=== PATIENT | male | born 1985 | race Caucasian/White ===

== ENCOUNTER 2018-07-25 04:30 | Emergency (ER) | payer MEDICAID ==
[~2018-07-25] VITALS: Ht 188 cm; Wt 109.0 kg
[~2018-07-25 04:30] MED LIST: ALBU8.5H8 IH; ALBU8HFA PO; CLIN300C85 PO
[2018-07-25] MEDS ORDERED: levoFLOXACIN-Levaquin 750MG/D5 150 ML IV ONE (05:05)
[2018-07-25] MEDS ORDERED: normal saline 1000ML IV soln IV ONE (05:05)
[2018-07-25 05:26] VITALS: BP 136/106
[2018-07-25 05:35] LABS: BASOPHILS % (AUTO) 0.4 % (0-1); EOSINOPHILS % (AUTO) 0.3 % (0-6); HEMATOCRIT 42.3 % (42.0-52.0); HEMOGLOBIN 13.9 g/dl (14.0-17.9); LYMPHOCYTES # (AUTO) 2.3 X10'3 (1.1-4.8); LYMPHOCYTES % (AUTO) 18.2 % (21-51); MEAN CORPUSCULAR HEMOGLOBIN 28.2 PG (27.0-31.0); MEAN CORPUSCULAR HGB CONC 32.9 % (33.0-36.5); MEAN CORPUSCULAR VOLUME 85.8 FL (78-98); MEAN PLATELET VOLUME 7.9 FL (7.4-10.4); MONOCYTES # (AUTO) 0.9 X10'3 (0-0.9); MONOCYTES % (AUTO) 7.3 % (2-12); NEUTROPHILS # (AUTO) 9.5 X10'3 (1.8-7.7); NEUTROPHILS % (AUTO) 73.8 % (42-75); PLATELET COUNT 422 X10'3 (140-440); RED BLOOD COUNT 4.94 X10'6 (4.70-6.10); WHITE BLOOD COUNT 12.9 X10'3 (4.5-11.0)
[2018-07-25 05:44] LABS: INR 1.1 INR; PARTIAL THROMBOPLASTIN TIME 29 SECONDS (22-32); PROTHROMBIN TIME 11.4 SECONDS (9.0-12.0)
[2018-07-25 05:45] LABS: ALANINE AMINOTRANSFERASE 45 U/L (12-78); ALBUMIN 3.1 G/DL (3.4-5.0); ALBUMIN/GLOBULIN RATIO 0.9 (1.1-1.5); ALKALINE PHOSPHATASE 72 IU/L (46-116); ANION GAP 12 (8-16); ASPARTATE AMINO TRANSFERASE 16 U/L (10-37); BILIRUBIN,TOTAL 0.7 MG/DL (0.1-1.0); BLOOD UREA NITROGEN 13 MG/DL (7-18); BUN/CREATININE RATIO 11.8 (5.4-32.0); CALCIUM 8.5 MG/DL (8.5-10.1); CHLORIDE 102 MMOL/L (99-107); GLUCOSE 103 MG/DL (70-104); MAGNESIUM 1.8 MG/DL (1.5-2.4); POTASSIUM 3.8 MMOL/L (3.5-5.1); SODIUM 137 MMOL/L (135-145); TOTAL CARBON DIOXIDE 22.9 MMOL/L (24-32); TOTAL PROTEIN 6.7 G/DL (6.4-8.2); eGFR 77 ML/MIN
[2018-07-25] MEDS ORDERED: iohexol 350MG/ML 100ml bottle IV ONE (06:02)
[2018-07-25] MEDS ORDERED: LEVO750T21 PO (08:21)
== END 2018-07-25 08:35 | disposition home or self-care (01) ==
LOC: ER 04:31
DX: J18.9 Pneumonia, unspecified organism (principal); J84.89 Other specified interstitial pulmonary diseases; J45.909 Unspecified asthma, uncomplicated; Z86.14 Personal history of Methicillin resistant Staphylococcus aureus infection; Z79.2 Long term (current) use of antibiotics; Z79.899 Other long term (current) drug therapy
CPT/HCPCS: 36415; 71046; 71275; 80053; 83605; 83735; 84145; 85025; 85610; 85730; 87040; 96365; 96366; 99284; J1956; J7030; Q9967

== ENCOUNTER 2018-08-04 14:51 | Emergency (ER) | payer MEDICAID ==
[~2018-08-04] VITALS: Ht 188 cm; Wt 104.5 kg
[~2018-08-04 14:51] MED LIST changes: +LEVO750T21 PO
[2018-08-04 15:25] VITALS: BP 134/93
[2018-08-04 16:24] LABS: BASOPHILS % (AUTO) 0.5 % (0-1); EOSINOPHILS # (AUTO) 0.1 X10'3 (0-0.9); EOSINOPHILS % (AUTO) 0.7 % (0-6); HEMATOCRIT 40.7 % (42.0-52.0); HEMOGLOBIN 13.4 g/dl (14.0-17.9); LYMPHOCYTES # (AUTO) 2.7 X10'3 (1.1-4.8); LYMPHOCYTES % (AUTO) 30.7 % (21-51); MEAN CORPUSCULAR HEMOGLOBIN 28.4 PG (27.0-31.0); MEAN CORPUSCULAR VOLUME 85.9 FL (78-98); MONOCYTES # (AUTO) 0.5 X10'3 (0-0.9); NEUTROPHILS # (AUTO) 5.4 X10'3 (1.8-7.7); NEUTROPHILS % (AUTO) 62.1 % (42-75); PLATELET COUNT 369 X10'3 (140-440); RED BLOOD COUNT 4.74 X10'6 (4.70-6.10); RED CELL DISTRIBUTION WIDTH 12.4 % (11.5-14.5); WHITE BLOOD COUNT 8.8 X10'3 (4.5-11.0)
[2018-08-04 16:40] LABS: ALANINE AMINOTRANSFERASE 34 U/L (12-78); ALBUMIN/GLOBULIN RATIO 0.8 (1.1-1.5); ALKALINE PHOSPHATASE 72 IU/L (46-116); ANION GAP 9 (8-16); ASPARTATE AMINO TRANSFERASE 15 U/L (10-37); BILIRUBIN,TOTAL 0.8 MG/DL (0.1-1.0); BLOOD UREA NITROGEN 15 MG/DL (7-18); BUN/CREATININE RATIO 12.8 (5.4-32.0); CALCIUM 8.8 MG/DL (8.5-10.1); CHLORIDE 104 MMOL/L (99-107); CREATININE 1.17 MG/DL (0.60-1.10); GLUCOSE 104 MG/DL (70-104); POTASSIUM 4.2 MMOL/L (3.5-5.1); SODIUM 138 MMOL/L (135-145); TOTAL CARBON DIOXIDE 25.3 MMOL/L (24-32); TOTAL PROTEIN 6.7 G/DL (6.4-8.2); eGFR 71 ML/MIN
[2018-08-04] MEDS ORDERED: FURO-150 PO (17:02)
== END 2018-08-04 17:20 | disposition home or self-care (01) ==
LOC: ER 14:51
DX: I51.7 Cardiomegaly (principal); J45.909 Unspecified asthma, uncomplicated; F12.90 Cannabis use, unspecified, uncomplicated; F15.90 Other stimulant use, unspecified, uncomplicated; Z86.14 Personal history of Methicillin resistant Staphylococcus aureus infection; Z79.899 Other long term (current) drug therapy
CPT/HCPCS: 36415; 71045; 80053; 83880; 85025; 87502; 87503; 93005; 99284

== ENCOUNTER → 2018-08-13 | Emergency (ER) | payer MEDICAID ==
[~2018-08-13] VITALS: Ht 188 cm; Wt 105.0 kg
[~2018-08-13] MED LIST changes: +ALBU8.5H8 INH; +CARV-49 PO; +CLON-529 PO; +CLON0.1T PO; +FURO-149 PO; +FURO-150 PO; +FURO40TA4 PO; -LEVO750T21 PO; +LORazepam 0.5 MG tablet PO ONE; +LORazepam 1 MG tablet PO ONE; +POTA-82 PO; +POTA20TA19 PO; +carVEDilol 12.5mg tablet PO ONE; +chlordiazePOXIDE 25mg capsule PO ONE; +cloNIDine 0.1 mg tablet PO ONE; +furosemide 20MG tablet PO ONE
[2018-08-13 06:03] LABS: BASOPHILS % (AUTO) 0.4 % (0-1); EOSINOPHILS # (AUTO) 0.2 X10'3 (0-0.9); EOSINOPHILS % (AUTO) 1.6 % (0-6); HEMATOCRIT 38.9 % (42.0-52.0); HEMOGLOBIN 13.1 g/dl (14.0-17.9); LYMPHOCYTES # (AUTO) 1.7 X10'3 (1.1-4.8); LYMPHOCYTES % (AUTO) 17.3 % (21-51); MEAN CORPUSCULAR HEMOGLOBIN 28.4 PG (27.0-31.0); MEAN CORPUSCULAR HGB CONC 33.7 % (33.0-36.5); MEAN CORPUSCULAR VOLUME 84.5 FL (78-98); MEAN PLATELET VOLUME 7.9 FL (7.4-10.4); MONOCYTES # (AUTO) 0.5 X10'3 (0-0.9); MONOCYTES % (AUTO) 5.6 % (2-12); NEUTROPHILS # (AUTO) 7.3 X10'3 (1.8-7.7); NEUTROPHILS % (AUTO) 75.1 % (42-75); PLATELET COUNT 392 X10'3 (140-440); WHITE BLOOD COUNT 9.7 X10'3 (4.5-11.0)
[2018-08-13 06:21] LABS: D-DIMER 1.52 MG/L FEU (0-0.50)
[2018-08-13 06:32] LABS: ALANINE AMINOTRANSFERASE 31 U/L (12-78); ALBUMIN 2.9 G/DL (3.4-5.0); ALBUMIN/GLOBULIN RATIO 0.8 (1.1-1.5); ALKALINE PHOSPHATASE 76 IU/L (46-116); ANION GAP 13 (8-16); ASPARTATE AMINO TRANSFERASE 18 U/L (10-37); BILIRUBIN,TOTAL 0.4 MG/DL (0.1-1.0); BLOOD UREA NITROGEN 16 MG/DL (7-18); BUN/CREATININE RATIO 14.4 (5.4-32.0); CALCIUM 8.7 MG/DL (8.5-10.1); CHLORIDE 106 MMOL/L (99-107); CREATININE 1.11 MG/DL (0.60-1.10); GLUCOSE 107 MG/DL (70-104); POTASSIUM 4.6 MMOL/L (3.5-5.1); SODIUM 139 MMOL/L (135-145); TOTAL CARBON DIOXIDE 20.5 MMOL/L (24-32); TOTAL PROTEIN 6.6 G/DL (6.4-8.2); eGFR 76 ML/MIN
[2018-08-13 06:34] VITALS: BP 139/62
[2018-08-13 06:40] LABS: MAGNESIUM 1.9 MG/DL (1.5-2.4)
== END | disposition home or self-care (01) ==
LOC: ER 05:17
DX: I42.0 Dilated cardiomyopathy (principal); F15.188 Other stimulant abuse with other stimulant-induced disorder; F41.9 Anxiety disorder, unspecified; I11.0 Hypertensive heart disease with heart failure; I50.9 Heart failure, unspecified; J45.909 Unspecified asthma, uncomplicated; F12.10 Cannabis abuse, uncomplicated
CPT/HCPCS: 36415; 71045; 80053; 83735; 83880; 84145; 84484; 85025; 85379; 93005; 99284

== ENCOUNTER 2018-08-14 14:25 | Inpatient (IN) | payer MEDICAID | END 2018-08-20 16:30 | disposition home health service (06) | LOC: ER 14:25 → ORTHO 4S 08-16 17:29 → ED HOLD 17:43 → ICU 2S 22:00 ==

== ENCOUNTER 2019-07-09 23:00 | Emergency (ER) | payer MEDICAID ==
[~2019-07-09] VITALS: Ht 185.4 cm; Wt 113.6 kg
[~2019-07-09 23:00] MED LIST changes: -ALBU8.5H8 IH; -ALBU8HFA PO; +APIX5TAB3 PO; +ASPI-1265 PO; +ATOR20TA66 PO; -CARV-49 PO; -CLIN300C85 PO; -CLON-529 PO; -CLON0.1T PO; +COR3.125T PO; -FURO-150 PO; -FURO40TA4 PO; +LISI2.5T2 PO; -LORazepam 0.5 MG tablet PO ONE; -LORazepam 1 MG tablet PO ONE; -POTA-82 PO; -POTA20TA19 PO; +SPIR25TA PO; -carVEDilol 12.5mg tablet PO ONE; -chlordiazePOXIDE 25mg capsule PO ONE; -cloNIDine 0.1 mg tablet PO ONE; -furosemide 20MG tablet PO ONE
[2019-07-10 00:15] LABS: PARTIAL THROMBOPLASTIN TIME 30 SECONDS (22-32)
[2019-07-10 00:19] LABS: ALANINE AMINOTRANSFERASE 36 U/L (12-78); ALBUMIN 4.6 G/DL (3.4-5.0); ALBUMIN/GLOBULIN RATIO 1.3 (1.1-1.5); ALKALINE PHOSPHATASE 87 IU/L (46-116); ANION GAP 10 (8-16); ASPARTATE AMINO TRANSFERASE 27 U/L (10-37); BILIRUBIN,TOTAL 0.9 MG/DL (0.1-1.0); BLOOD UREA NITROGEN 15 MG/DL (7-18); CALCIUM 9.1 MG/DL (8.5-10.1); CHLORIDE 101 MMOL/L (99-107); CREATININE 1.15 MG/DL (0.60-1.10); GLUCOSE 101 MG/DL (70-104); POTASSIUM 3.1 MMOL/L (3.5-5.1); SODIUM 138 MMOL/L (135-145); TOTAL CARBON DIOXIDE 26.9 MMOL/L (24-32); TOTAL PROTEIN 8.2 G/DL (6.4-8.2); eGFR 73 ML/MIN
[2019-07-10] MEDS ORDERED: LORazepam 2 mg/ml vial IV ONE (00:20)
[2019-07-10 00:22] LABS: TROPONIN I < 0.04 NG/ML (0.0-0.05)
[2019-07-10 01:07] LABS: BASOPHILS # (AUTO) 0.1 X10'3 (0-0.2); BASOPHILS % (AUTO) 1.1 % (0-1); EOSINOPHILS # (AUTO) 0.1 X10'3 (0-0.9); EOSINOPHILS % (AUTO) 0.7 % (0-6); HEMATOCRIT 45.7 % (42.0-52.0); HEMOGLOBIN 16.1 g/dl (14.0-17.9); LYMPHOCYTES # (AUTO) 3.1 X10'3 (1.1-4.8); LYMPHOCYTES % (AUTO) 30.3 % (21-51); MEAN CORPUSCULAR HGB CONC 35.2 g/dL (33.0-36.5); MEAN PLATELET VOLUME 8.6 FL (7.4-10.4); MONOCYTES # (AUTO) 0.9 X10'3 (0-0.9); MONOCYTES % (AUTO) 8.5 % (2-12); NEUTROPHILS # (AUTO) 6.1 X10'3 (1.8-7.7); NEUTROPHILS % (AUTO) 59.4 % (42-75); PLATELET COUNT 267 X10'3 (140-440); RED CELL DISTRIBUTION WIDTH 12.8 % (11.5-14.5); WHITE BLOOD COUNT 10.3 X10'3 (4.5-11.0)
[2019-07-10 01:35] VITALS: BP 130/77
== END 2019-07-10 01:36 | disposition home or self-care (01) ==
LOC: ER 23:01
DX: R20.2 Paresthesia of skin (principal); R20.0 Anesthesia of skin; I50.9 Heart failure, unspecified; J45.909 Unspecified asthma, uncomplicated; Z86.73 Personal history of transient ischemic attack (TIA), and cerebral infarction without residual deficits; Z86.14 Personal history of Methicillin resistant Staphylococcus aureus infection; F12.90 Cannabis use, unspecified, uncomplicated; F15.90 Other stimulant use, unspecified, uncomplicated; Z79.82 Long term (current) use of aspirin; Z79.899 Other long term (current) drug therapy
CPT/HCPCS: 36415; 70450; 71045; 80053; 82948; 84484; 85025; 85610; 85730; 93005; 96374; 99284; J2060

== ENCOUNTER 2019-07-10 19:14 | Emergency (ER) | payer MEDICAID ==
[~2019-07-10] VITALS: Ht 185.4 cm; Wt 113.0 kg
[2019-07-10 19:32] VITALS: BP 160/99
[2019-07-10] MEDS ORDERED: LORazepam 1 MG tablet PO ONE (20:35)
[2019-07-10 21:46] LABS: CLARITY,URINE CLEAR (Clear); COLOR,URINE AMBER (Yellow); GLUCOSE, URINE NEGATIVE (Neg); KETONES,URINE NEGATIVE (Neg); LEUKOCYTE ESTERASE ,URINE NEGATIVE (Neg); NITRITES, URINE NEGATIVE (Neg); OCCULT BLOOD,URINE NEGATIVE (Neg); PROTEIN,URINE NEGATIVE (Neg)
[2019-07-10 21:47] LABS: UA COLLECTION TYPE CLN CATCH MIDSTREAM
== END 2019-07-10 22:30 | disposition home or self-care (01) ==
LOC: ER 19:15
DX: E86.0 Dehydration (principal); F41.9 Anxiety disorder, unspecified; R30.0 Dysuria; I50.9 Heart failure, unspecified; J45.909 Unspecified asthma, uncomplicated; F12.90 Cannabis use, unspecified, uncomplicated; F15.90 Other stimulant use, unspecified, uncomplicated; Z86.14 Personal history of Methicillin resistant Staphylococcus aureus infection; Z86.73 Personal history of transient ischemic attack (TIA), and cerebral infarction without residual deficits; Z79.82 Long term (current) use of aspirin; Z79.899 Other long term (current) drug therapy; Z79.01 Long term (current) use of anticoagulants
CPT/HCPCS: 81003; 99283

== ENCOUNTER 2019-10-01 13:06 | Emergency (ER) | payer MEDICAID ==
[~2019-10-01] VITALS: Ht 185.4 cm; Wt 109.1 kg
[2019-10-01 13:45] VITALS: BP 140/89
== END 2019-10-01 16:00 | disposition home or self-care (01) ==
LOC: ER 13:06
DX: S01.01XD Laceration without foreign body of scalp, subsequent encounter (principal); I50.9 Heart failure, unspecified; J45.909 Unspecified asthma, uncomplicated; F12.90 Cannabis use, unspecified, uncomplicated; F15.90 Other stimulant use, unspecified, uncomplicated; Z86.73 Personal history of transient ischemic attack (TIA), and cerebral infarction without residual deficits; Z86.14 Personal history of Methicillin resistant Staphylococcus aureus infection; Z79.01 Long term (current) use of anticoagulants; Z79.82 Long term (current) use of aspirin; Z79.899 Other long term (current) drug therapy; W22.8XXD Striking against or struck by other objects, subsequent encounter
CPT/HCPCS: 99281

== ENCOUNTER 2020-01-03 17:51 | Emergency (ER) | payer MEDICAID ==
[~2020-01-03] VITALS: Ht 185.4 cm; Wt 104.2 kg
[2020-01-03 18:40] LABS: BASOPHILS # (AUTO) 0.1 X10'3 (0-0.2); EOSINOPHILS # (AUTO) 0.1 X10'3 (0-0.9); HEMOGLOBIN 17.2 g/dl (14.0-17.9); LYMPHOCYTES # (AUTO) 2.4 X10'3 (1.1-4.8); MEAN PLATELET VOLUME 8.6 FL (7.4-10.4); MONOCYTES # (AUTO) 0.7 X10'3 (0-0.9)
[2020-01-03 18:42] LABS: BASOPHILS % (AUTO) 0.6 % (0-1); EOSINOPHILS % (AUTO) 0.6 % (0-6); HEMATOCRIT 49.5 % (42.0-52.0); LYMPHOCYTES % (AUTO) 25.6 % (21-51); MEAN CORPUSCULAR HEMOGLOBIN 30.8 PG (27.0-31.0); MEAN CORPUSCULAR HGB CONC 34.7 g/dL (33.0-36.5); MEAN CORPUSCULAR VOLUME 88.6 FL (78-98); MONOCYTES % (AUTO) 7.7 % (2-12); NEUTROPHILS # (AUTO) 6.1 X10'3 (1.8-7.7); NEUTROPHILS % (AUTO) 65.5 % (42-75); PLATELET COUNT 246 X10'3 (140-440); RED BLOOD COUNT 5.59 X10'6 (4.70-6.10); RED CELL DISTRIBUTION WIDTH 12.5 % (11.5-14.5); WHITE BLOOD COUNT 9.3 X10'3 (4.5-11.0)
[2020-01-03] MEDS ORDERED: LORazepam 1 MG tablet PO ONE (18:55)
[2020-01-03 18:59] LABS: ALANINE AMINOTRANSFERASE 43 U/L (12-78); ALBUMIN 4.7 G/DL (3.4-5.0); ALBUMIN/GLOBULIN RATIO 1.3 (1.1-1.5); ALKALINE PHOSPHATASE 86 IU/L (46-116); ANION GAP 13 (8-16); ASPARTATE AMINO TRANSFERASE 28 U/L (10-37); BILIRUBIN,TOTAL 1.1 MG/DL (0.1-1.0); BLOOD UREA NITROGEN 13 MG/DL (7-18); BUN/CREATININE RATIO 10.6 (5.4-32.0); CALCIUM 9.6 MG/DL (8.5-10.1); CHLORIDE 104 MMOL/L (99-107); CREATININE 1.23 MG/DL (0.60-1.10); GLUCOSE 97 MG/DL (70-104); POTASSIUM 3.3 MMOL/L (3.5-5.1); SODIUM 142 MMOL/L (135-145); TOTAL CARBON DIOXIDE 24.8 MMOL/L (24-32); TOTAL PROTEIN 8.3 G/DL (6.4-8.2); eGFR 67 ML/MIN
[2020-01-03 19:53] VITALS: BP 122/89
== END 2020-01-03 19:56 | disposition home or self-care (01) ==
LOC: ER 17:54
DX: F41.9 Anxiety disorder, unspecified (principal); I50.9 Heart failure, unspecified; J45.909 Unspecified asthma, uncomplicated; F12.90 Cannabis use, unspecified, uncomplicated; F15.90 Other stimulant use, unspecified, uncomplicated; Z86.73 Personal history of transient ischemic attack (TIA), and cerebral infarction without residual deficits; Z86.14 Personal history of Methicillin resistant Staphylococcus aureus infection; Z79.01 Long term (current) use of anticoagulants; Z79.82 Long term (current) use of aspirin; Z79.899 Other long term (current) drug therapy
CPT/HCPCS: 36415; 71045; 80053; 84484; 85025; 93005; 99285

== ENCOUNTER 2020-03-27 13:26 | Emergency (ER) | payer MEDICAID ==
[~2020-03-27] VITALS: Ht 185.4 cm; Wt 99.0 kg
--- NOTE | 2020-03-27 14:34 | NUR ---
pt to xray
[2020-03-27 14:43] LABS: BASOPHILS # (AUTO) 0.1 X10'3 (0-0.2); BASOPHILS % (AUTO) 0.6 % (0-1); EOSINOPHILS # (AUTO) 0.1 X10'3 (0-0.9); EOSINOPHILS % (AUTO) 1.5 % (0-6); HEMATOCRIT 47.3 % (42.0-52.0); HEMOGLOBIN 16.4 g/dl (14.0-17.9); LYMPHOCYTES # (AUTO) 2.9 X10'3 (1.1-4.8); LYMPHOCYTES % (AUTO) 37.8 % (21-51); MEAN CORPUSCULAR HEMOGLOBIN 30.6 PG (27.0-31.0); MEAN CORPUSCULAR HGB CONC 34.6 g/dL (33.0-36.5); MEAN CORPUSCULAR VOLUME 88.4 FL (78-98); MEAN PLATELET VOLUME 9.1 FL (7.4-10.4); MONOCYTES # (AUTO) 0.6 X10'3 (0-0.9); MONOCYTES % (AUTO) 8.3 % (2-12); NEUTROPHILS % (AUTO) 51.8 % (42-75); PLATELET COUNT 248 X10'3 (140-440); RED BLOOD COUNT 5.35 X10'6 (4.70-6.10); RED CELL DISTRIBUTION WIDTH 12.7 % (11.5-14.5); WHITE BLOOD COUNT 7.7 X10'3 (4.5-11.0)
[2020-03-27 14:49] LABS: ALANINE AMINOTRANSFERASE 31 U/L (12-78); ALBUMIN 4.8 G/DL (3.4-5.0); ALBUMIN/GLOBULIN RATIO 1.4 (1.1-1.5); ALKALINE PHOSPHATASE 76 IU/L (46-116); ANION GAP 11 (8-16); ASPARTATE AMINO TRANSFERASE 18 U/L (10-37); BILIRUBIN,TOTAL 1.1 MG/DL (0.1-1.0); BLOOD UREA NITROGEN 14 MG/DL (7-18); BUN/CREATININE RATIO 10.5 (5.4-32.0); CALCIUM 9.5 MG/DL (8.5-10.1); CHLORIDE 104 MMOL/L (99-107); CREATININE 1.33 MG/DL (0.60-1.10); GLUCOSE 92 MG/DL (70-104); POTASSIUM 3.5 MMOL/L (3.5-5.1); SODIUM 141 MMOL/L (135-145); TOTAL CARBON DIOXIDE 26.3 MMOL/L (24-32); TOTAL PROTEIN 8.3 G/DL (6.4-8.2); eGFR 61 ML/MIN
[2020-03-27 16:09] VITALS: BP 134/89
== END 2020-03-27 15:45 | disposition home or self-care (01) ==
LOC: ER 13:26
DX: F41.9 Anxiety disorder, unspecified (principal); R07.89 Other chest pain; I50.9 Heart failure, unspecified; J45.909 Unspecified asthma, uncomplicated; F12.90 Cannabis use, unspecified, uncomplicated; F15.90 Other stimulant use, unspecified, uncomplicated; Z86.14 Personal history of Methicillin resistant Staphylococcus aureus infection; Z95.0 Presence of cardiac pacemaker; Z86.73 Personal history of transient ischemic attack (TIA), and cerebral infarction without residual deficits; Z79.899 Other long term (current) drug therapy; Z79.82 Long term (current) use of aspirin; Z79.01 Long term (current) use of anticoagulants
CPT/HCPCS: 36415; 71045; 80053; 83880; 84484; 85025; 93005; 99285

== ENCOUNTER 2020-11-25 22:06 | Emergency (ER) | payer MEDICAID ==
[~2020-11-25] VITALS: Ht 188 cm; Wt 113.6 kg
--- NOTE | 2020-11-25 22:32 | NUR ---
recent medication changes to heart medications
--- NOTE | 2020-11-25 22:33 | NUR ---
LISINOPRIL AND COREG DOUBLE RECENTLY LISINOPRIL FROM 2.5 MG TO 5MG AND COREG FROM 3.125 TO 6.25 ONE WEEK AGO PATIENT TOOK COREG TODAY, BUT NOT HIS LISINOPRIL
[2020-11-25 22:43] LABS: BASOPHILS % (AUTO) 0.6 % (0-1); EOSINOPHILS # (AUTO) 0.2 X10'3 (0-0.9); EOSINOPHILS % (AUTO) 2.4 % (0-6); HEMATOCRIT 45.3 % (42.0-52.0); HEMOGLOBIN 15.8 g/dl (14.0-17.9); LYMPHOCYTES # (AUTO) 3.5 X10'3 (1.1-4.8); MEAN CORPUSCULAR HEMOGLOBIN 31.2 PG (27.0-31.0); MEAN CORPUSCULAR HGB CONC 34.9 g/dL (33.0-36.5); MEAN CORPUSCULAR VOLUME 89.4 FL (78-98); MEAN PLATELET VOLUME 8.6 FL (7.4-10.4); MONOCYTES # (AUTO) 0.6 X10'3 (0-0.9); NEUTROPHILS # (AUTO) 3.4 X10'3 (1.8-7.7); PLATELET COUNT 222 X10'3 (140-440); RED BLOOD COUNT 5.07 X10'6 (4.70-6.10); RED CELL DISTRIBUTION WIDTH 12.3 % (11.5-14.5); WHITE BLOOD COUNT 7.8 X10'3 (4.5-11.0)
[2020-11-25 22:59] LABS: ALANINE AMINOTRANSFERASE 50 U/L (12-78); ALBUMIN 4.2 G/DL (3.4-5.0); ALBUMIN/GLOBULIN RATIO 1.3 (1.1-1.5); ALKALINE PHOSPHATASE 76 IU/L (46-116); ANION GAP 9 (8-16); ASPARTATE AMINO TRANSFERASE 30 U/L (10-37); BILIRUBIN,TOTAL 0.7 MG/DL (0.1-1.0); BLOOD UREA NITROGEN 18 MG/DL (7-18); BUN/CREATININE RATIO 15.8 (5.4-32.0); CALCIUM 8.9 MG/DL (8.5-10.1); CHLORIDE 104 MMOL/L (99-107); CREATININE 1.14 MG/DL (0.60-1.10); GLUCOSE 97 MG/DL (70-104); POTASSIUM 3.8 MMOL/L (3.5-5.1); SODIUM 139 MMOL/L (135-145); TOTAL PROTEIN 7.5 G/DL (6.4-8.2); eGFR 73 ML/MIN
[2020-11-25 23:44] VITALS: BP 124/83
== END 2020-11-25 23:48 | disposition home or self-care (01) ==
LOC: ER 22:06
DX: R07.89 Other chest pain (principal); J45.909 Unspecified asthma, uncomplicated; I50.9 Heart failure, unspecified; F12.90 Cannabis use, unspecified, uncomplicated; F15.90 Other stimulant use, unspecified, uncomplicated; Z86.14 Personal history of Methicillin resistant Staphylococcus aureus infection; Z95.0 Presence of cardiac pacemaker; Z86.73 Personal history of transient ischemic attack (TIA), and cerebral infarction without residual deficits; Z79.899 Other long term (current) drug therapy
CPT/HCPCS: 36415; 71045; 80053; 83880; 84484; 85025; 93005; 99285

== ENCOUNTER 2021-03-27 11:34 | Emergency (ER) | payer MEDICAID ==
[~2021-03-27] VITALS: Ht 188 cm; Wt 106.8 kg
[~2021-03-27 11:34] MED LIST changes: +ALBU8.5H17 INH; -ALBU8.5H8 INH; +LISI2.5T14 PO; -LISI2.5T2 PO
[2021-03-27] MEDS ORDERED: ALBU6.7H9 INH (12:30)
== END 2021-03-27 12:53 | disposition home or self-care (01) ==
LOC: ER 11:34
DX: U07.1 COVID-19 (principal); J06.9 Acute upper respiratory infection, unspecified; R09.89 Other specified symptoms and signs involving the circulatory and respiratory systems; R06.02 Shortness of breath; R50.9 Fever, unspecified; R51.9 Headache, unspecified; I50.9 Heart failure, unspecified; J45.909 Unspecified asthma, uncomplicated; F12.90 Cannabis use, unspecified, uncomplicated; F15.90 Other stimulant use, unspecified, uncomplicated; Z86.73 Personal history of transient ischemic attack (TIA), and cerebral infarction without residual deficits; Z86.14 Personal history of Methicillin resistant Staphylococcus aureus infection; Z87.01 Personal history of pneumonia (recurrent); Z95.0 Presence of cardiac pacemaker; Z79.82 Long term (current) use of aspirin; Z79.899 Other long term (current) drug therapy
CPT/HCPCS: 36415; 71045; 93005; 99285; U0003; U0005

== ENCOUNTER 2021-09-14 21:30 | Emergency (ER) | payer MEDICAID ==
[~2021-09-14] VITALS: Ht 185.4 cm; Wt 107.0 kg
[~2021-09-14 21:30] MED LIST changes: +ALBU6.7H9 INH
[2021-09-14 22:18] LABS: BASOPHILS % (AUTO) 0.5 % (0-1); EOSINOPHILS # (AUTO) 0.2 X10'3 (0-0.9); EOSINOPHILS % (AUTO) 2.1 % (0-6); HEMATOCRIT 46.1 % (42.0-52.0); HEMOGLOBIN 16.1 g/dl (14.0-17.9); LYMPHOCYTES # (AUTO) 2.9 X10'3 (1.1-4.8); MEAN CORPUSCULAR HEMOGLOBIN 30.7 PG (27.0-31.0); MEAN CORPUSCULAR HGB CONC 34.8 g/dL (33.0-36.5); MEAN PLATELET VOLUME 7.5 FL (7.4-10.4); MONOCYTES # (AUTO) 0.6 X10'3 (0-0.9); MONOCYTES % (AUTO) 8.5 % (2-12); NEUTROPHILS # (AUTO) 3.9 X10'3 (1.8-7.7); NEUTROPHILS % (AUTO) 50.9 % (42-75); PLATELET COUNT 251 X10'3 (140-440); RED BLOOD COUNT 5.24 X10'6 (4.70-6.10); RED CELL DISTRIBUTION WIDTH 12.7 % (11.5-14.5); WHITE BLOOD COUNT 7.7 X10'3 (4.5-11.0)
[2021-09-14 22:29] LABS: ALANINE AMINOTRANSFERASE 51 U/L (12-78); ALBUMIN 4.3 G/DL (3.4-5.0); ALBUMIN/GLOBULIN RATIO 1.3 (1.1-1.5); ALKALINE PHOSPHATASE 69 IU/L (46-116); ANION GAP 10 (8-16); ASPARTATE AMINO TRANSFERASE 29 U/L (10-37); BILIRUBIN,TOTAL 0.7 MG/DL (0.1-1.0); BLOOD UREA NITROGEN 15 MG/DL (7-18); BUN/CREATININE RATIO 13.4 (5.4-32.0); CALCIUM 9.1 MG/DL (8.5-10.1); CHLORIDE 106 MMOL/L (99-107); CREATININE 1.12 MG/DL (0.60-1.10); GLUCOSE 100 MG/DL (70-104); SODIUM 144 MMOL/L (135-145); TOTAL CARBON DIOXIDE 28.3 MMOL/L (24-32); TOTAL PROTEIN 7.6 G/DL (6.4-8.2); eGFR 74 ML/MIN
[2021-09-15 01:26] VITALS: BP 141/98
--- NOTE | 2021-09-15 02:15 | NUR ---
Patient observed leaving unit.
== END 2021-09-15 02:25 | disposition left against medical advice (07) ==
LOC: ER 21:31
DX: R07.89 Other chest pain (principal); Z53.21 Procedure and treatment not carried out due to patient leaving prior to being seen by health care provider
CPT/HCPCS: 36415; 71045; 80053; 83880; 84484; 85025; 93005

== ENCOUNTER 2021-11-09 18:57 | Emergency (ER) | payer MEDICAID ==
[~2021-11-09] VITALS: Ht 188 cm; Wt 104.5 kg
--- NOTE | 2021-11-09 19:51 | NUR ---
patient to radiology and restroom
[2021-11-09 20:03] LABS: BASOPHILS % (AUTO) 0.5 % (0-1); EOSINOPHILS # (AUTO) 0.2 X10'3 (0-0.9); EOSINOPHILS % (AUTO) 2.3 % (0-6); HEMOGLOBIN 16.4 g/dl (14.0-17.9); LYMPHOCYTES # (AUTO) 2.9 X10'3 (1.1-4.8); LYMPHOCYTES % (AUTO) 37.8 % (21-51); MEAN CORPUSCULAR HEMOGLOBIN 30.2 PG (27.0-31.0); MEAN CORPUSCULAR HGB CONC 34.8 g/dL (33.0-36.5); MEAN CORPUSCULAR VOLUME 86.9 FL (78-98); MEAN PLATELET VOLUME 8.2 FL (7.4-10.4); MONOCYTES # (AUTO) 0.7 X10'3 (0-0.9); MONOCYTES % (AUTO) 9.1 % (2-12); NEUTROPHILS # (AUTO) 3.9 X10'3 (1.8-7.7); NEUTROPHILS % (AUTO) 50.3 % (42-75); PLATELET COUNT 237 X10'3 (140-440); RED BLOOD COUNT 5.41 X10'6 (4.70-6.10); RED CELL DISTRIBUTION WIDTH 12.7 % (11.5-14.5); WHITE BLOOD COUNT 7.8 X10'3 (4.5-11.0)
[2021-11-09 20:15] LABS: ALANINE AMINOTRANSFERASE 33 U/L (12-78); ALBUMIN 4.5 G/DL (3.4-5.0); ALBUMIN/GLOBULIN RATIO 1.4 (1.1-1.5); ALKALINE PHOSPHATASE 67 IU/L (46-116); ANION GAP 10 (8-16); ASPARTATE AMINO TRANSFERASE 23 U/L (10-37); BILIRUBIN,TOTAL 0.6 MG/DL (0.1-1.0); BLOOD UREA NITROGEN 14 MG/DL (7-18); BUN/CREATININE RATIO 11.6 (5.4-32.0); CALCIUM 9.1 MG/DL (8.5-10.1); CHLORIDE 104 MMOL/L (99-107); CREATININE 1.21 MG/DL (0.60-1.10); GLUCOSE 98 MG/DL (70-104); POTASSIUM 3.6 MMOL/L (3.5-5.1); SODIUM 140 MMOL/L (135-145); TOTAL CARBON DIOXIDE 25.6 MMOL/L (24-32); TOTAL PROTEIN 7.7 G/DL (6.4-8.2); eGFR 67 ML/MIN
[2021-11-09 20:53] VITALS: BP 129/66
== END 2021-11-09 20:55 | disposition home or self-care (01) ==
LOC: ER 18:57
DX: I11.0 Hypertensive heart disease with heart failure (principal); J45.909 Unspecified asthma, uncomplicated; F12.10 Cannabis abuse, uncomplicated; F15.10 Other stimulant abuse, uncomplicated; Z95.1 Presence of aortocoronary bypass graft
CPT/HCPCS: 36415; 71045; 80053; 83880; 84484; 85025; 93005; 99285

== ENCOUNTER 2022-02-24 13:32 | Emergency (ER) | payer MEDICAID ==
[~2022-02-24] VITALS: Ht 185.4 cm; Wt 104.5 kg
[2022-02-24 16:30] LABS: BASOPHILS % (AUTO) 0.7 % (0-1); EOSINOPHILS # (AUTO) 0.2 X10'3 (0-0.9); EOSINOPHILS % (AUTO) 2.8 % (0-6); HEMATOCRIT 47.4 % (42.0-52.0); HEMOGLOBIN 16.5 g/dl (14.0-17.9); LYMPHOCYTES # (AUTO) 2.1 X10'3 (1.1-4.8); LYMPHOCYTES % (AUTO) 34.7 % (21-51); MEAN CORPUSCULAR HEMOGLOBIN 30.7 PG (27.0-31.0); MEAN CORPUSCULAR HGB CONC 34.8 g/dL (33.0-36.5); MEAN CORPUSCULAR VOLUME 88.2 FL (78-98); MEAN PLATELET VOLUME 7.9 FL (7.4-10.4); MONOCYTES # (AUTO) 0.4 X10'3 (0-0.9); MONOCYTES % (AUTO) 7.3 % (2-12); NEUTROPHILS # (AUTO) 3.3 X10'3 (1.8-7.7); NEUTROPHILS % (AUTO) 54.5 % (42-75); PLATELET COUNT 216 X10'3 (140-440); RED BLOOD COUNT 5.38 X10'6 (4.70-6.10); RED CELL DISTRIBUTION WIDTH 12.8 % (11.5-14.5)
[2022-02-24 16:46] LABS: ALANINE AMINOTRANSFERASE 30 U/L (12-78); ALBUMIN 4.4 G/DL (3.4-5.0); ALBUMIN/GLOBULIN RATIO 1.2 (1.1-1.5); ALKALINE PHOSPHATASE 69 IU/L (46-116); ANION GAP 8 (8-16); ASPARTATE AMINO TRANSFERASE 20 U/L (10-37); BILIRUBIN,TOTAL 0.9 MG/DL (0.1-1.0); BLOOD UREA NITROGEN 13 MG/DL (7-18); BUN/CREATININE RATIO 12.1 (5.4-32.0); CHLORIDE 105 MMOL/L (99-107); CREATININE 1.07 MG/DL (0.60-1.10); GLUCOSE 90 MG/DL (70-104); POTASSIUM 4.1 MMOL/L (3.5-5.1); SODIUM 140 MMOL/L (135-145); TOTAL CARBON DIOXIDE 26.7 MMOL/L (24-32); TOTAL PROTEIN 8.1 G/DL (6.4-8.2); eGFR 78 ML/MIN
[2022-02-24 16:50] VITALS: BP 121/75
== END 2022-02-24 17:03 | disposition home or self-care (01) ==
LOC: ER 13:32
DX: R42 Dizziness and giddiness (principal); I11.9 Hypertensive heart disease without heart failure; F12.10 Cannabis abuse, uncomplicated; F15.10 Other stimulant abuse, uncomplicated; Z79.899 Other long term (current) drug therapy; Z79.82 Long term (current) use of aspirin
CPT/HCPCS: 36415; 80053; 85025; 93005; 99284

== ENCOUNTER 2022-07-31 17:50 | Emergency (ER) | payer MEDICAID ==
[~2022-07-31] VITALS: Ht 188 cm; Wt 102.3 kg
[~2022-07-31 17:50] MED LIST changes: +ALBU6.7H14 INH; -ALBU6.7H9 INH
[2022-07-31 18:02] VITALS: BP 158/89
[2022-07-31 18:20] LABS: BASOPHILS % (AUTO) 0.5 % (0-1); EOSINOPHILS # (AUTO) 0.1 X10'3 (0-0.9); EOSINOPHILS % (AUTO) 0.7 % (0-6); HEMATOCRIT 47.3 % (42.0-52.0); LYMPHOCYTES % (AUTO) 28.7 % (21-51); MEAN CORPUSCULAR HEMOGLOBIN 30.1 PG (27.0-31.0); MEAN CORPUSCULAR HGB CONC 33.9 g/dL (33.0-36.5); MEAN CORPUSCULAR VOLUME 88.9 FL (78-98); MEAN PLATELET VOLUME 7.8 FL (7.4-10.4); MONOCYTES # (AUTO) 0.6 X10'3 (0-0.9); NEUTROPHILS # (AUTO) 4.3 X10'3 (1.8-7.7); NEUTROPHILS % (AUTO) 61.1 % (42-75); PLATELET COUNT 259 X10'3 (140-440); RED BLOOD COUNT 5.32 X10'6 (4.70-6.10)
[2022-07-31 18:30] LABS: ALANINE AMINOTRANSFERASE 42 U/L (12-78); ALBUMIN 4.2 G/DL (3.4-5.0); ALBUMIN/GLOBULIN RATIO 1.4 (1.1-1.5); ALKALINE PHOSPHATASE 87 IU/L (46-116); ANION GAP 9 (8-16); ASPARTATE AMINO TRANSFERASE 18 U/L (10-37); BILIRUBIN,TOTAL 0.8 MG/DL (0.1-1.0); BLOOD UREA NITROGEN 10 MG/DL (7-18); BUN/CREATININE RATIO 9.6 (5.4-32.0); CALCIUM 9.3 MG/DL (8.5-10.1); CHLORIDE 104 MMOL/L (99-107); CREATININE 1.04 MG/DL (0.60-1.10); GLUCOSE 110 MG/DL (70-104); POTASSIUM 3.8 MMOL/L (3.5-5.1); SODIUM 141 MMOL/L (135-145); TOTAL CARBON DIOXIDE 28.5 MMOL/L (24-32); TOTAL PROTEIN 7.3 G/DL (6.4-8.2); eGFR 80 ML/MIN
== END 2022-07-31 21:22 | disposition home or self-care (01) ==
LOC: ER 17:51
DX: R07.89 Other chest pain (principal); I50.9 Heart failure, unspecified; J45.909 Unspecified asthma, uncomplicated; F12.90 Cannabis use, unspecified, uncomplicated; F15.90 Other stimulant use, unspecified, uncomplicated; Z86.14 Personal history of Methicillin resistant Staphylococcus aureus infection; Z86.73 Personal history of transient ischemic attack (TIA), and cerebral infarction without residual deficits; Z79.899 Other long term (current) drug therapy
CPT/HCPCS: 36415; 80053; 83735; 83880; 84484; 85025; 93005; 99284

== ENCOUNTER 2023-03-10 14:14 | Emergency (ER) | payer MEDICAID ==
[~2023-03-10] VITALS: Ht 188 cm; Wt 109.6 kg
[2023-03-10 14:29] VITALS: BP 156/92; PULSE 75; RESP 16; TEMP 98; O2SAT 98
[2023-03-10 14:39] LABS: BASOPHILS % (AUTO) 0.5 % (0-1); EOSINOPHILS # (AUTO) 0.1 X10'3 (0-0.9); EOSINOPHILS % (AUTO) 1.8 % (0-6); HEMATOCRIT 47.6 % (42.0-52.0); HEMOGLOBIN 16.4 g/dl (14.0-17.9); LYMPHOCYTES # (AUTO) 1.6 X10'3 (1.1-4.8); LYMPHOCYTES % (AUTO) 36.8 % (21-51); MEAN CORPUSCULAR HEMOGLOBIN 30.9 PG (27.0-31.0); MEAN CORPUSCULAR HGB CONC 34.4 g/dL (33.0-36.5); MEAN CORPUSCULAR VOLUME 89.9 FL (78-98); MEAN PLATELET VOLUME 7.9 FL (7.4-10.4); MONOCYTES # (AUTO) 0.2 X10'3 (0-0.9); MONOCYTES % (AUTO) 5.8 % (2-12); NEUTROPHILS # (AUTO) 2.4 X10'3 (1.8-7.7); NEUTROPHILS % (AUTO) 55.1 % (42-75); PLATELET COUNT 206 X10'3 (140-440); RED BLOOD COUNT 5.29 X10'6 (4.70-6.10); RED CELL DISTRIBUTION WIDTH 12.6 % (11.5-14.5); WHITE BLOOD COUNT 4.3 X10'3 (4.5-11.0)
[2023-03-10 14:53] LABS: ALANINE AMINOTRANSFERASE 31 U/L (12-78); ALBUMIN 4.2 G/DL (3.4-5.0); ALBUMIN/GLOBULIN RATIO 1.3 (1.1-1.5); ALKALINE PHOSPHATASE 69 IU/L (46-116); ANION GAP 6 (8-16); ASPARTATE AMINO TRANSFERASE 23 U/L (10-37); BLOOD UREA NITROGEN 11 MG/DL (7-18); BUN/CREATININE RATIO 9.6 (10.0-20.0); CALCIUM 9.1 MG/DL (8.5-10.1); CHLORIDE 105 MMOL/L (99-107); CREATININE 1.15 MG/DL (0.60-1.10); GLUCOSE 122 MG/DL (70-104); POTASSIUM 3.9 MMOL/L (3.5-5.1); SODIUM 140 MMOL/L (135-145); TOTAL CARBON DIOXIDE 29.4 MMOL/L (24-32); TOTAL PROTEIN 7.4 G/DL (6.4-8.2); eCRCL 101 ML/MIN; eGFR 71 ML/MIN
[2023-03-10 15:00] LABS: PRO BRAIN NATRIURETIC PEPTIDE 33 PG/ML (0-125)
== END 2023-03-10 17:46 | disposition home or self-care (01) ==
LOC: ER 14:15
DX: R07.89 Other chest pain (principal); F15.90 Other stimulant use, unspecified, uncomplicated; F12.90 Cannabis use, unspecified, uncomplicated; I50.9 Heart failure, unspecified; J45.909 Unspecified asthma, uncomplicated; Z86.73 Personal history of transient ischemic attack (TIA), and cerebral infarction without residual deficits; Z86.14 Personal history of Methicillin resistant Staphylococcus aureus infection; Z95.0 Presence of cardiac pacemaker; Z79.82 Long term (current) use of aspirin; Z79.899 Other long term (current) drug therapy
CPT/HCPCS: 36415; 71045; 80053; 83880; 84484; 85025; 93005; 99285

== ENCOUNTER 2023-04-05 23:00 | Emergency (ER) | payer MEDICAID ==
[~2023-04-05] VITALS: Ht 188 cm; Wt 109.2 kg
[2023-04-05 23:34] VITALS: BP 132/93; PULSE 51; RESP 16; TEMP 97.7; O2SAT 98
[2023-04-05 23:53] LABS: ALANINE AMINOTRANSFERASE 42 U/L (12-78); ALBUMIN 4.2 G/DL (3.4-5.0); ALBUMIN/GLOBULIN RATIO 1.3 (1.1-1.5); ALKALINE PHOSPHATASE 66 IU/L (46-116); ANION GAP 10 (8-16); ASPARTATE AMINO TRANSFERASE 19 U/L (10-37); BILIRUBIN,TOTAL 0.6 MG/DL (0.1-1.0); BLOOD UREA NITROGEN 14 MG/DL (7-18); BUN/CREATININE RATIO 13.7 (10.0-20.0); CALCIUM 9.6 MG/DL (8.5-10.1); CHLORIDE 107 MMOL/L (99-107); CREATININE 1.02 MG/DL (0.60-1.10); GLUCOSE 99 MG/DL (70-104); POTASSIUM 3.7 MMOL/L (3.5-5.1); SODIUM 143 MMOL/L (135-145); TOTAL CARBON DIOXIDE 26.5 MMOL/L (24-32); TOTAL PROTEIN 7.4 G/DL (6.4-8.2); eCRCL 114 ML/MIN; eGFR 82 ML/MIN
[2023-04-05 23:59] LABS: BASOPHILS % (AUTO) 0.7 % (0-1); EOSINOPHILS # (AUTO) 0.2 X10'3 (0-0.9); EOSINOPHILS % (AUTO) 2.6 % (0-6); HEMATOCRIT 46.6 % (42.0-52.0); HEMOGLOBIN 16.2 g/dl (14.0-17.9); LYMPHOCYTES # (AUTO) 2.8 X10'3 (1.1-4.8); LYMPHOCYTES % (AUTO) 43.7 % (21-51); MEAN CORPUSCULAR HGB CONC 34.8 g/dL (33.0-36.5); MEAN CORPUSCULAR VOLUME 89.1 FL (78-98); MEAN PLATELET VOLUME 7.9 FL (7.4-10.4); MONOCYTES # (AUTO) 0.6 X10'3 (0-0.9); MONOCYTES % (AUTO) 8.7 % (2-12); NEUTROPHILS # (AUTO) 2.9 X10'3 (1.8-7.7); NEUTROPHILS % (AUTO) 44.3 % (42-75); PLATELET COUNT 220 X10'3 (140-440); RED BLOOD COUNT 5.23 X10'6 (4.70-6.10); RED CELL DISTRIBUTION WIDTH 12.8 % (11.5-14.5); WHITE BLOOD COUNT 6.5 X10'3 (4.5-11.0)
[2023-04-06 00:04] LABS: PRO BRAIN NATRIURETIC PEPTIDE < 30 PG/ML (0-125)
== END 2023-04-06 02:03 | disposition left against medical advice (07) ==
LOC: ER 23:01
DX: R07.9 Chest pain, unspecified (principal); Z53.21 Procedure and treatment not carried out due to patient leaving prior to being seen by health care provider
CPT/HCPCS: 36415; 80053; 83880; 84484; 85025; 93005; 99281

== ENCOUNTER 2023-07-23 21:18 | Emergency (ER) | payer MEDICAID ==
[~2023-07-23] VITALS: Ht 185.4 cm; Wt 113.6 kg
[2023-07-23 21:38] LABS: BASOPHILS # (AUTO) 0.1 X10'3 (0-0.2); BASOPHILS % (AUTO) 0.7 % (0-1); EOSINOPHILS # (AUTO) 0.2 X10'3 (0-0.9); HEMATOCRIT 49.6 % (42.0-52.0); HEMOGLOBIN 16.8 g/dl (14.0-17.9); MEAN CORPUSCULAR HEMOGLOBIN 30.7 PG (27.0-31.0); MEAN CORPUSCULAR VOLUME 90.2 FL (78-98); MEAN PLATELET VOLUME 8.2 FL (7.4-10.4); MONOCYTES # (AUTO) 0.7 X10'3 (0-0.9); MONOCYTES % (AUTO) 9.1 % (2-12); NEUTROPHILS # (AUTO) 3.3 X10'3 (1.8-7.7); NEUTROPHILS % (AUTO) 45.2 % (42-75); PLATELET COUNT 223 X10'3 (140-440); RED BLOOD COUNT 5.49 X10'6 (4.70-6.10); WHITE BLOOD COUNT 7.2 X10'3 (4.5-11.0)
[2023-07-23 21:47] LABS: ALANINE AMINOTRANSFERASE 36 U/L (12-78); ALBUMIN 4.6 G/DL (3.4-5.0); ALBUMIN/GLOBULIN RATIO 1.2 (1.1-1.5); ALKALINE PHOSPHATASE 68 IU/L (46-116); ANION GAP 9 (8-16); ASPARTATE AMINO TRANSFERASE 28 U/L (10-37); BILIRUBIN,TOTAL 0.9 MG/DL (0.1-1.0); BLOOD UREA NITROGEN 13 MG/DL (7-18); BUN/CREATININE RATIO 13.5 (10.0-20.0); CALCIUM 9.3 MG/DL (8.5-10.1); CHLORIDE 102 MMOL/L (99-107); CREATININE 0.96 MG/DL (0.60-1.10); GLUCOSE 89 MG/DL (70-104); POTASSIUM 3.5 MMOL/L (3.5-5.1); SODIUM 139 MMOL/L (135-145); TOTAL CARBON DIOXIDE 27.6 MMOL/L (24-32); TOTAL PROTEIN 8.4 G/DL (6.4-8.2); eCRCL 117 ML/MIN; eGFR 87 ML/MIN
[2023-07-23 21:51] VITALS: TEMP 98
[2023-07-23 21:55] LABS: PRO BRAIN NATRIURETIC PEPTIDE < 30 PG/ML (0-125)
[2023-07-23] MEDS ORDERED: LORazepam 0.5 MG tablet PO PRN (23:25)
[2023-07-23] MEDS ORDERED: ibuprofen tablet 400 MG TABLET PO ONE (23:25)
[2023-07-24 00:33] VITALS: BP 154/90; PULSE 83; RESP 18; O2SAT 99
== END 2023-07-24 00:35 | disposition home or self-care (01) ==
LOC: ER 21:19
DX: R07.9 Chest pain, unspecified (principal); R00.2 Palpitations; I11.0 Hypertensive heart disease with heart failure; J45.909 Unspecified asthma, uncomplicated; F12.10 Cannabis abuse, uncomplicated; F15.10 Other stimulant abuse, uncomplicated; Z79.899 Other long term (current) drug therapy
CPT/HCPCS: 36415; 71045; 80053; 83880; 84484; 85025; 93005; 99285

== ENCOUNTER 2023-10-12 17:02 | Emergency (ER) | payer MEDICAID ==
[~2023-10-12] VITALS: Ht 185.4 cm; Wt 111.1 kg
[2023-10-12 17:11] VITALS: TEMP 98
[2023-10-12 17:54] LABS: BASOPHILS % (AUTO) 0.6 % (0-1); EOSINOPHILS # (AUTO) 0.2 X10'3 (0-0.9); EOSINOPHILS % (AUTO) 2.4 % (0-6); HEMATOCRIT 46.7 % (42.0-52.0); HEMOGLOBIN 16.4 g/dl (14.0-17.9); LYMPHOCYTES # (AUTO) 2.1 X10'3 (1.1-4.8); LYMPHOCYTES % (AUTO) 30.6 % (21-51); MEAN CORPUSCULAR HEMOGLOBIN 30.9 PG (27.0-31.0); MEAN CORPUSCULAR VOLUME 88.2 FL (78-98); MEAN PLATELET VOLUME 7.9 FL (7.4-10.4); MONOCYTES # (AUTO) 0.5 X10'3 (0-0.9); MONOCYTES % (AUTO) 7.4 % (2-12); PLATELET COUNT 217 X10'3 (140-440); RED CELL DISTRIBUTION WIDTH 13.2 % (11.5-14.5); WHITE BLOOD COUNT 6.7 X10'3 (4.5-11.0)
[2023-10-12 18:01] VITALS: BP 135/103; PULSE 79; RESP 16; O2SAT 97
[2023-10-12 18:13] LABS: ALBUMIN 4.1 G/DL (3.4-5.0); ANION GAP 9 (8-16); BLOOD UREA NITROGEN 12 MG/DL (7-18); BUN/CREATININE RATIO 10.3 (10.0-20.0); CALCIUM 8.9 MG/DL (8.5-10.1); CHLORIDE 106 MMOL/L (99-107); CREATININE 1.17 MG/DL (0.60-1.10); GLUCOSE 103 MG/DL (70-104); POTASSIUM 3.8 MMOL/L (3.5-5.1); PRO BRAIN NATRIURETIC PEPTIDE < 30 PG/ML (0-125); SODIUM 141 MMOL/L (135-145); TOTAL CARBON DIOXIDE 26.3 MMOL/L (24-32); eCRCL 96 ML/MIN; eGFR 69 ML/MIN
[2023-10-12] MEDS ORDERED: NAPR-56 PO (18:38)
== END 2023-10-12 18:48 | disposition home or self-care (01) ==
LOC: ER 17:03
DX: R07.89 Other chest pain (principal); I50.9 Heart failure, unspecified; J45.909 Unspecified asthma, uncomplicated; F12.90 Cannabis use, unspecified, uncomplicated; F15.90 Other stimulant use, unspecified, uncomplicated; Z98.890 Other specified postprocedural states; Z86.73 Personal history of transient ischemic attack (TIA), and cerebral infarction without residual deficits; Z79.82 Long term (current) use of aspirin; Z79.899 Other long term (current) drug therapy; Z79.2 Long term (current) use of antibiotics; Z95.0 Presence of cardiac pacemaker
CPT/HCPCS: 36415; 71045; 80048; 83880; 84484; 85025; 93005; 99285

== ENCOUNTER 2023-12-24 18:26 | Emergency (ER) | payer MEDICAID ==
[~2023-12-24] VITALS: Ht 185.4 cm; Wt 105.6 kg
[2023-12-24 18:49] VITALS: BP 147/87; PULSE 72; RESP 18; TEMP 98.2; O2SAT 98
[2023-12-24] MEDS ORDERED: TETRACAINE 0.5% 4 ML OPHTHALMIC DROPS LEFTEYE ONE (19:25)
== END 2023-12-24 20:54 | disposition left against medical advice (07) ==
LOC: ER 18:26
DX: H57.12 Ocular pain, left eye (principal); Z53.21 Procedure and treatment not carried out due to patient leaving prior to being seen by health care provider

== ENCOUNTER 2023-12-31 08:33 | Inpatient (IN) | payer MEDICAID ==
[~2023-12-31] VITALS: Ht 185.4 cm; Wt 104.5 kg
[2023-12-31] MEDS ORDERED: iohexol 350MG/ML 100ml bottle IV ONE (08:41)
[2023-12-31 09:19] LABS: BASOPHILS # (AUTO) 0.1 X10'3 (0-0.2); EOSINOPHILS # (AUTO) 0.2 X10'3 (0-0.9); EOSINOPHILS % (AUTO) 3.8 % (0-6); HEMATOCRIT 48.2 % (42.0-52.0); HEMOGLOBIN 16.6 g/dl (14.0-17.9); LYMPHOCYTES # (AUTO) 2.2 X10'3 (1.1-4.8); LYMPHOCYTES % (AUTO) 37.3 % (21-51); MEAN CORPUSCULAR HEMOGLOBIN 30.9 PG (27.0-31.0); MEAN CORPUSCULAR HGB CONC 34.5 g/dL (33.0-36.5); MEAN CORPUSCULAR VOLUME 89.7 FL (78-98); MEAN PLATELET VOLUME 8.3 FL (7.4-10.4); MONOCYTES # (AUTO) 0.5 X10'3 (0-0.9); MONOCYTES % (AUTO) 8.7 % (2-12); NEUTROPHILS # (AUTO) 2.9 X10'3 (1.8-7.7); NEUTROPHILS % (AUTO) 49.2 % (42-75); PLATELET COUNT 218 X10'3 (140-440); RED BLOOD COUNT 5.38 X10'6 (4.70-6.10); RED CELL DISTRIBUTION WIDTH 12.5 % (11.5-14.5); WHITE BLOOD COUNT 5.9 X10'3 (4.5-11.0)
[2023-12-31 09:27] LABS: ALBUMIN 4.3 G/DL (3.4-5.0); ANION GAP 8 (8-16); BLOOD UREA NITROGEN 14 MG/DL (7-18); BUN/CREATININE RATIO 13.3 (10.0-20.0); CHLORIDE 104 MMOL/L (99-107); CREATININE 1.05 MG/DL (0.60-1.10); GLUCOSE 105 MG/DL (70-104); POTASSIUM 3.9 MMOL/L (3.5-5.1); SODIUM 139 MMOL/L (135-145); eCRCL 107 ML/MIN; eGFR 79 ML/MIN
[2023-12-31 09:28] LABS: APTT 27 SECONDS (22-32); INR 1.1 INR; PROTHROMBIN TIME 11.6 SECONDS (9.0-12.0)
[2023-12-31] MEDS: diazepam inj 5 MG/ML inj. IV ONE (09:35)
[2023-12-31] MEDS: normal saline 1000ML IV soln IVB ONE (09:35)
[2023-12-31] MEDS: aspirin 81mg tab.chew PO ONE (10:32)
[2023-12-31] MEDS ORDERED: magnesium 2GM in 50ml NS 50 ML IV PRN (11:05)
[2023-12-31] MEDS ORDERED: acetaminophen 325mg tablet PO PRN ×2 (11:05)
[2023-12-31] MEDS ORDERED: magnesium 4gm in 100ml NS 100 ML IV PRN (11:05)
[2023-12-31] MEDS ORDERED: magnesium Cl slow-release 64mg tablet PO PRN (11:05)
[2023-12-31] MEDS ORDERED: potassium Cl 20 mEq SR tablet PO PRN ×2 (11:05)
[2023-12-31] MEDS ORDERED: ondansetron/PF 4mg/2ml inj IV PRN (11:05)
[2023-12-31] MEDS ORDERED: potassium Cl 40MEQ/1/2NS 520ml 520 ML IV PRN (11:05)
[2023-12-31] MEDS: normal saline 1000ml 1,000 ML IV SCH (12:04)
[2023-12-31] MEDS: carVEDilol 3.125mg tablet PO SCH (13:03)
[2023-12-31 21:11] VITALS: BP 152/100; PULSE 81; TEMP 97.7; O2SAT 98
[2023-12-31 22:07] VITALS: BP 142/87; PULSE 68
[2024-01-01 06:30] VITALS: BP 144/74; PULSE 52; RESP 16; TEMP 97.3; O2SAT 97
[2024-01-01 07:02] LABS: BASOPHILS % (AUTO) 0.6 % (0-1); EOSINOPHILS # (AUTO) 0.3 X10'3 (0-0.9); EOSINOPHILS % (AUTO) 4.3 % (0-6); HEMATOCRIT 45.5 % (42.0-52.0); HEMOGLOBIN 15.7 g/dl (14.0-17.9); LYMPHOCYTES # (AUTO) 3.1 X10'3 (1.1-4.8); LYMPHOCYTES % (AUTO) 43.4 % (21-51); MEAN CORPUSCULAR HGB CONC 34.6 g/dL (33.0-36.5); MEAN CORPUSCULAR VOLUME 89.6 FL (78-98); MEAN PLATELET VOLUME 8.5 FL (7.4-10.4); MONOCYTES # (AUTO) 0.6 X10'3 (0-0.9); MONOCYTES % (AUTO) 8.3 % (2-12); NEUTROPHILS # (AUTO) 3.1 X10'3 (1.8-7.7); NEUTROPHILS % (AUTO) 43.4 % (42-75); PLATELET COUNT 195 X10'3 (140-440); RED BLOOD COUNT 5.08 X10'6 (4.70-6.10); RED CELL DISTRIBUTION WIDTH 12.6 % (11.5-14.5); WHITE BLOOD COUNT 7.2 X10'3 (4.5-11.0)
[2024-01-01 07:06] LABS: ALANINE AMINOTRANSFERASE 41 U/L (12-78); ALBUMIN 3.7 G/DL (3.4-5.0); ALBUMIN/GLOBULIN RATIO 1.2 (1.1-1.5); ALKALINE PHOSPHATASE 60 IU/L (46-116); ANION GAP 7 (8-16); ASPARTATE AMINO TRANSFERASE 40 U/L (10-37); BILIRUBIN,TOTAL 0.7 MG/DL (0.1-1.0); BLOOD UREA NITROGEN 12 MG/DL (7-18); BUN/CREATININE RATIO 13.5 (10.0-20.0); CALCIUM 8.9 MG/DL (8.5-10.1); CHLORIDE 107 MMOL/L (99-107); CREATININE 0.89 MG/DL (0.60-1.10); GLUCOSE 99 MG/DL (70-104); POTASSIUM 3.7 MMOL/L (3.5-5.1); SODIUM 141 MMOL/L (135-145); TOTAL CARBON DIOXIDE 27.5 MMOL/L (24-32); TOTAL PROTEIN 6.8 G/DL (6.4-8.2); eCRCL 126 ML/MIN; eGFR > 90 ML/MIN
[2024-01-01 08:00] VITALS: RESP 16; O2SAT 95
[2024-01-01] MEDS: clopidogrel 75mg tablet PO SCH (08:13)
[2024-01-01] MEDS: aspirin 81mg, enteric-coated 1 TAB TABLET.DR PO SCH (08:13)
[2024-01-01] MEDS: atorvastatin 20mg tablet PO SCH (08:13)
[2024-01-01] MEDS: enoxaparin 40mg/0.4ml syringe SUBCUT SCH (08:14)
[2024-01-01 10:00] VITALS: BP 144/94; PULSE 67; RESP 14; TEMP 97.8; O2SAT 97
[2024-01-01 20:00] VITALS: BP 130/83; PULSE 78; RESP 20; TEMP 98; O2SAT 98
[2024-01-01 22:00] VITALS: BP 122/76; PULSE 66; RESP 16; TEMP 97.4; O2SAT 97
[2024-01-02 07:18] LABS: BASOPHILS % (AUTO) 0.7 % (0-1); EOSINOPHILS # (AUTO) 0.2 X10'3 (0-0.9); EOSINOPHILS % (AUTO) 3.4 % (0-6); HEMATOCRIT 47.2 % (42.0-52.0); HEMOGLOBIN 16.4 g/dl (14.0-17.9); LYMPHOCYTES # (AUTO) 2.7 X10'3 (1.1-4.8); LYMPHOCYTES % (AUTO) 43.5 % (21-51); MEAN CORPUSCULAR HEMOGLOBIN 30.9 PG (27.0-31.0); MEAN CORPUSCULAR HGB CONC 34.7 g/dL (33.0-36.5); MEAN CORPUSCULAR VOLUME 88.8 FL (78-98); MEAN PLATELET VOLUME 8.2 FL (7.4-10.4); MONOCYTES # (AUTO) 0.6 X10'3 (0-0.9); MONOCYTES % (AUTO) 9.1 % (2-12); NEUTROPHILS # (AUTO) 2.7 X10'3 (1.8-7.7); NEUTROPHILS % (AUTO) 43.3 % (42-75); PLATELET COUNT 196 X10'3 (140-440); RED BLOOD COUNT 5.31 X10'6 (4.70-6.10); RED CELL DISTRIBUTION WIDTH 12.7 % (11.5-14.5); WHITE BLOOD COUNT 6.3 X10'3 (4.5-11.0)
[2024-01-02 07:37] LABS: ALANINE AMINOTRANSFERASE 40 U/L (12-78); ALBUMIN 3.7 G/DL (3.4-5.0); ALBUMIN/GLOBULIN RATIO 1.1 (1.1-1.5); ALKALINE PHOSPHATASE 61 IU/L (46-116); ANION GAP 9 (8-16); ASPARTATE AMINO TRANSFERASE 34 U/L (10-37); BILIRUBIN,TOTAL 0.9 MG/DL (0.1-1.0); BLOOD UREA NITROGEN 14 MG/DL (7-18); BUN/CREATININE RATIO 15.2 (10.0-20.0); CALCIUM 8.5 MG/DL (8.5-10.1); CHLORIDE 107 MMOL/L (99-107); CREATININE 0.92 MG/DL (0.60-1.10); GLUCOSE 99 MG/DL (70-104); POTASSIUM 3.8 MMOL/L (3.5-5.1); SODIUM 141 MMOL/L (135-145); TOTAL CARBON DIOXIDE 24.9 MMOL/L (24-32); TOTAL PROTEIN 7.1 G/DL (6.4-8.2); eCRCL 122 ML/MIN; eGFR > 90 ML/MIN
[2024-01-02 08:38] LABS: HEMOGLOBIN A1C 5.1 % (4.5-6.2)
[2024-01-02 09:15] LABS: CHOL/HDL RATIO 3.6 (0.00-4.99); CHOLESTEROL 129 MG/DL (0-200); HDL CHOLESTEROL 36 MG/DL (35-60); LDL CHOLESTEROL 78 MG/DL (50-100); TRIGLYCERIDES 122 MG/DL (20-135)
[2024-01-02 10:00] VITALS: BP 142/72; PULSE 68; RESP 16; TEMP 97.8; O2SAT 99
== END 2024-01-02 11:45 | disposition home or self-care (01) | DRG 861 ==
LOC: ER 08:33 → ED HOLD 11:17 → ORTHO 4S 21:05
PROVIDERS: ADMIT Internal Medicine; ATTEND Internal Medicine
DX: R53.1 Weakness (principal); I50.32 Chronic diastolic (congestive) heart failure; J45.909 Unspecified asthma, uncomplicated; Z79.82 Long term (current) use of aspirin; Z79.899 Other long term (current) drug therapy; Z86.73 Personal history of transient ischemic attack (TIA), and cerebral infarction without residual deficits; Z95.810 Presence of automatic (implantable) cardiac defibrillator
CPT/HCPCS: 36415; 70450; 70551; 71045; 80048; 80053; 80061; 82948; 83036; 85025; 85610; 85730; 87081; 92508; 92616; 93005; 93306; 93880; 97161; 97530; 99285; A6258; G0378; J1650; J3360; J3490; J7030; Q9967

== ENCOUNTER 2024-02-25 01:13 | Emergency (ER) | payer MEDICAID ==
[~2024-02-25] VITALS: Ht 185.4 cm; Wt 108.9 kg
[~2024-02-25 01:13] MED LIST changes: -APIX5TAB3 PO; -FURO-149 PO; -SPIR25TA PO
[2024-02-25 01:21] VITALS: TEMP 97.9
[2024-02-25 02:35] LABS: BASOPHILS # (AUTO) 0.1 X10'3 (0-0.2); EOSINOPHILS # (AUTO) 0.3 X10'3 (0-0.9); EOSINOPHILS % (AUTO) 4.7 % (0-6); MONOCYTES # (AUTO) 0.6 X10'3 (0-0.9); RED CELL DISTRIBUTION WIDTH 12.8 % (11.5-14.5)
[2024-02-25 02:37] LABS: BASOPHILS % (AUTO) 0.8 % (0-1); HEMATOCRIT 43.7 % (42.0-52.0); HEMOGLOBIN 15.5 g/dl (14.0-17.9); LYMPHOCYTES # (AUTO) 3.2 X10'3 (1.1-4.8); LYMPHOCYTES % (AUTO) 46.1 % (21-51); MEAN CORPUSCULAR HEMOGLOBIN 31.5 PG (27.0-31.0); MEAN CORPUSCULAR HGB CONC 35.5 g/dL (33.0-36.5); MEAN CORPUSCULAR VOLUME 88.7 FL (78-98); MEAN PLATELET VOLUME 7.9 FL (7.4-10.4); MONOCYTES % (AUTO) 9.3 % (2-12); NEUTROPHILS # (AUTO) 2.7 X10'3 (1.8-7.7); NEUTROPHILS % (AUTO) 39.1 % (42-75); PLATELET COUNT 217 X10'3 (140-440); RED BLOOD COUNT 4.92 X10'6 (4.70-6.10)
[2024-02-25 02:47] LABS: ALANINE AMINOTRANSFERASE 38 U/L (12-78); ALBUMIN 3.8 G/DL (3.4-5.0); ALBUMIN/GLOBULIN RATIO 1.2 (1.1-1.5); ALKALINE PHOSPHATASE 68 IU/L (46-116); ANION GAP 4 (8-16); ASPARTATE AMINO TRANSFERASE 22 U/L (10-37); BILIRUBIN,TOTAL 0.5 MG/DL (0.1-1.0); BLOOD UREA NITROGEN 15 MG/DL (7-18); BUN/CREATININE RATIO 14.6 (10.0-20.0); CALCIUM 8.9 MG/DL (8.5-10.1); CHLORIDE 106 MMOL/L (99-107); CREATININE 1.03 MG/DL (0.60-1.10); GLUCOSE 100 MG/DL (70-104); POTASSIUM 3.7 MMOL/L (3.5-5.1); SODIUM 139 MMOL/L (135-145); TOTAL PROTEIN 7.1 G/DL (6.4-8.2); eCRCL 109 ML/MIN; eGFR 80 ML/MIN
[2024-02-25 02:54] LABS: PRO BRAIN NATRIURETIC PEPTIDE < 30 PG/ML (0-125)
[2024-02-25 03:34] VITALS: BP 132/76; PULSE 81; RESP 14; O2SAT 97
== END 2024-02-25 03:38 | disposition home or self-care (01) ==
LOC: ER 01:14
DX: R07.89 Other chest pain (principal); I50.9 Heart failure, unspecified; J45.909 Unspecified asthma, uncomplicated; F12.90 Cannabis use, unspecified, uncomplicated; F15.90 Other stimulant use, unspecified, uncomplicated; Z95.0 Presence of cardiac pacemaker; Z79.899 Other long term (current) drug therapy; Z86.73 Personal history of transient ischemic attack (TIA), and cerebral infarction without residual deficits
CPT/HCPCS: 36415; 71045; 80053; 83880; 84484; 85025; 93005; 99285

== ENCOUNTER 2024-04-26 13:18 | Emergency (ER) | payer MEDICAID ==
[~2024-04-26] VITALS: Ht 188 cm; Wt 110.9 kg
[2024-04-26 13:58] VITALS: BP 138/82; PULSE 80; RESP 18; TEMP 97.8; O2SAT 98
[2024-04-26] MEDS ORDERED: ERYT1OIN6 EACHEYE (15:34)
[2024-04-26] MEDS ORDERED: CLIN300C71 PO (15:34)
[2024-04-27] MEDS ORDERED: CIPR2.5D21 LEFTEYE (08:48)
[2024-04-27] MEDS ORDERED: AMOX-580 PO (08:48)
== END 2024-04-27 00:02 | disposition home or self-care (01) ==
LOC: ER 13:19
DX: H00.014 Hordeolum externum left upper eyelid (principal); I50.9 Heart failure, unspecified; J45.909 Unspecified asthma, uncomplicated; F12.90 Cannabis use, unspecified, uncomplicated; F15.90 Other stimulant use, unspecified, uncomplicated; Z79.899 Other long term (current) drug therapy; Z79.82 Long term (current) use of aspirin; Z79.2 Long term (current) use of antibiotics; Z86.73 Personal history of transient ischemic attack (TIA), and cerebral infarction without residual deficits; Z95.0 Presence of cardiac pacemaker
CPT/HCPCS: 99283

== ENCOUNTER 2024-04-27 05:13 | Emergency (ER) | payer MEDICAID ==
[~2024-04-27] VITALS: Ht 188 cm; Wt 109.4 kg
[~2024-04-27 05:13] MED LIST changes: +CLIN300C71 PO; +ERYT1OIN6 EACHEYE
[2024-04-27 05:39] VITALS: TEMP 97.8
[2024-04-27] MEDS: proparacaine 0.5% ophthalmic drops 15ml EACHEYE ONE (05:49)
[2024-04-27] MEDS: ciprofloxacin 0.3% 2.5ml ophthalmic solution LEFTEYE ONE (05:57)
[2024-04-27] MEDS ORDERED: iohexol 300mg/ml 100ml inj. ONE (06:54)
[2024-04-27 06:58] VITALS: BP 146/92; PULSE 62; RESP 18; O2SAT 97
[2024-04-27] MEDS: ondansetron 4mg rapidly disintigrating tab PO ONE (07:09)
[2024-04-27] MEDS: amox tr/potassium clavulanate 875/125mg TAB PO ONE (07:10)
[2024-04-27 08:18] LABS: BASOPHILS % (AUTO) 0.5 % (0-1); EOSINOPHILS # (AUTO) 0.1 X10'3 (0-0.9); EOSINOPHILS % (AUTO) 1.6 % (0-6); HEMATOCRIT 44.1 % (42.0-52.0); HEMOGLOBIN 15.2 g/dl (14.0-17.9); LYMPHOCYTES # (AUTO) 2.2 X10'3 (1.1-4.8); LYMPHOCYTES % (AUTO) 30.9 % (21-51); MEAN CORPUSCULAR HGB CONC 34.4 g/dL (33.0-36.5); MEAN CORPUSCULAR VOLUME 90.1 FL (78-98); MEAN PLATELET VOLUME 8.2 FL (7.4-10.4); MONOCYTES # (AUTO) 0.7 X10'3 (0-0.9); MONOCYTES % (AUTO) 10.1 % (2-12); NEUTROPHILS % (AUTO) 56.9 % (42-75); PLATELET COUNT 207 X10'3 (140-440); RED CELL DISTRIBUTION WIDTH 12.8 % (11.5-14.5); WHITE BLOOD COUNT 7.1 X10'3 (4.5-11.0)
[2024-04-27 08:19] LABS: ALBUMIN 3.7 G/DL (3.4-5.0); ANION GAP 6 (8-16); BLOOD UREA NITROGEN 11 MG/DL (7-18); BUN/CREATININE RATIO 10.3 (10.0-20.0); CALCIUM 8.8 MG/DL (8.5-10.1); CHLORIDE 106 MMOL/L (99-107); CREATININE 1.07 MG/DL (0.60-1.10); GLUCOSE 107 MG/DL (70-104); POTASSIUM 4.1 MMOL/L (3.5-5.1); SODIUM 138 MMOL/L (135-145); TOTAL CARBON DIOXIDE 26.3 MMOL/L (24-32); eCRCL 108 ML/MIN; eGFR 77 ML/MIN
[2024-04-27] MEDS ORDERED: CIPR2.5D21 LEFTEYE (08:48)
[2024-04-27] MEDS ORDERED: AMOX-580 PO (08:48)
== END 2024-04-27 09:15 | disposition home or self-care (01) ==
LOC: ER 05:14
DX: L03.213 Periorbital cellulitis (principal); F12.90 Cannabis use, unspecified, uncomplicated; F15.90 Other stimulant use, unspecified, uncomplicated; I50.9 Heart failure, unspecified; J45.909 Unspecified asthma, uncomplicated; Z86.14 Personal history of Methicillin resistant Staphylococcus aureus infection; Z86.73 Personal history of transient ischemic attack (TIA), and cerebral infarction without residual deficits; Z95.0 Presence of cardiac pacemaker; Z79.2 Long term (current) use of antibiotics; Z79.899 Other long term (current) drug therapy
CPT/HCPCS: 36415; 70481; 80048; 84145; 85025; 99285; Q9967

== ENCOUNTER 2024-10-11 19:40 | Emergency (ER) | payer MEDICAID ==
[~2024-10-11] VITALS: Ht 188 cm; Wt 111.8 kg
[~2024-10-11 19:40] MED LIST changes: +CARV3.1232 PO; -COR3.125T PO
[2024-10-11 19:50] VITALS: TEMP 98.3
[2024-10-11 20:13] LABS: BASOPHILS % (AUTO) 0.6 % (0-1); EOSINOPHILS # (AUTO) 0.1 X10'3 (0-0.9); EOSINOPHILS % (AUTO) 2.2 % (0-6); HEMATOCRIT 49.2 % (42.0-52.0); LYMPHOCYTES # (AUTO) 2.5 X10'3 (1.1-4.8); LYMPHOCYTES % (AUTO) 35.9 % (21-51); MEAN CORPUSCULAR HEMOGLOBIN 30.8 PG (27.0-31.0); MEAN CORPUSCULAR HGB CONC 34.5 g/dL (33.0-36.5); MEAN CORPUSCULAR VOLUME 89.3 FL (78-98); MEAN PLATELET VOLUME 7.7 FL (7.4-10.4); MONOCYTES # (AUTO) 0.6 X10'3 (0-0.9); NEUTROPHILS # (AUTO) 3.6 X10'3 (1.8-7.7); NEUTROPHILS % (AUTO) 53.3 % (42-75); PLATELET COUNT 236 X10'3 (140-440); RED BLOOD COUNT 5.51 X10'6 (4.70-6.10); RED CELL DISTRIBUTION WIDTH 13.1 % (11.5-14.5); WHITE BLOOD COUNT 6.8 X10'3 (4.5-11.0)
[2024-10-11 20:20] LABS: ALBUMIN 4.4 G/DL (3.4-5.0); ANION GAP 9 (8-16); BLOOD UREA NITROGEN 13 MG/DL (7-18); CALCIUM 9.2 MG/DL (8.5-10.1); CHLORIDE 105 MMOL/L (99-107); GLUCOSE 102 MG/DL (70-104); POTASSIUM 3.8 MMOL/L (3.5-5.1); SODIUM 141 MMOL/L (135-145); TOTAL CARBON DIOXIDE 27.2 MMOL/L (24-32); eCRCL 114 ML/MIN; eGFR 83 ML/MIN
[2024-10-11 20:24] LABS: APTT 26 SECONDS (22-32); PROTHROMBIN TIME 10.9 SECONDS (9.0-12.0)
[2024-10-11 23:12] VITALS: BP 131/78; PULSE 68; RESP 18; O2SAT 98
== END 2024-10-11 23:13 | disposition home or self-care (01) ==
LOC: ER 19:41
DX: R51.9 Headache, unspecified (principal); Z00.8 Encounter for other general examination; I50.9 Heart failure, unspecified; J45.909 Unspecified asthma, uncomplicated; Z86.73 Personal history of transient ischemic attack (TIA), and cerebral infarction without residual deficits; F12.90 Cannabis use, unspecified, uncomplicated; F15.90 Other stimulant use, unspecified, uncomplicated; Z95.0 Presence of cardiac pacemaker; Z79.82 Long term (current) use of aspirin
CPT/HCPCS: 36415; 70450; 71045; 80048; 85025; 85610; 85730; 93005; 99285

== ENCOUNTER 2024-10-14 13:37 | Emergency (ER) | payer MEDICAID ==
[~2024-10-14] VITALS: Ht 188 cm; Wt 112.5 kg
[2024-10-14 13:56] VITALS: TEMP 98.7; O2SAT 99
[2024-10-14 14:20] LABS: BASOPHILS % (AUTO) 0.7 % (0-1); EOSINOPHILS # (AUTO) 0.1 X10'3 (0-0.9); EOSINOPHILS % (AUTO) 1.2 % (0-6); HEMATOCRIT 50.4 % (42.0-52.0); HEMOGLOBIN 17.5 g/dl (14.0-17.9); LYMPHOCYTES # (AUTO) 2.1 X10'3 (1.1-4.8); LYMPHOCYTES % (AUTO) 35.6 % (21-51); MEAN CORPUSCULAR HGB CONC 34.6 g/dL (33.0-36.5); MEAN CORPUSCULAR VOLUME 89.6 FL (78-98); MONOCYTES # (AUTO) 0.5 X10'3 (0-0.9); MONOCYTES % (AUTO) 8.3 % (2-12); NEUTROPHILS # (AUTO) 3.3 X10'3 (1.8-7.7); NEUTROPHILS % (AUTO) 54.2 % (42-75); PLATELET COUNT 241 X10'3 (140-440); RED BLOOD COUNT 5.63 X10'6 (4.70-6.10)
[2024-10-14 14:41] LABS: ALANINE AMINOTRANSFERASE 33 U/L (12-78); ALBUMIN 4.3 G/DL (3.4-5.0); ALBUMIN/GLOBULIN RATIO 1.1 (1.1-1.5); ALKALINE PHOSPHATASE 73 IU/L (46-116); ANION GAP 6 (8-16); ASPARTATE AMINO TRANSFERASE 16 U/L (10-37); BILIRUBIN,TOTAL 0.8 MG/DL (0.1-1.0); BLOOD UREA NITROGEN 13 MG/DL (7-18); BUN/CREATININE RATIO 13.1 (10.0-20.0); CALCIUM 9.2 MG/DL (8.5-10.1); CHLORIDE 105 MMOL/L (99-107); CREATININE 0.99 MG/DL (0.60-1.10); GLUCOSE 63 MG/DL (70-104); SODIUM 141 MMOL/L (135-145); TOTAL CARBON DIOXIDE 29.9 MMOL/L (24-32); TOTAL PROTEIN 8.2 G/DL (6.4-8.2); eCRCL 115 ML/MIN; eGFR 84 ML/MIN
[2024-10-14 16:33] VITALS: BP 139/100; PULSE 79
[2024-10-14 16:56] LABS: PRO BRAIN NATRIURETIC PEPTIDE < 30 PG/ML (0-125)
[2024-10-14 17:13] VITALS: RESP 18
== END 2024-10-14 17:19 | disposition home or self-care (01) ==
LOC: ER 13:37
DX: R42 Dizziness and giddiness (principal); I50.9 Heart failure, unspecified; J45.909 Unspecified asthma, uncomplicated; F12.90 Cannabis use, unspecified, uncomplicated; F15.90 Other stimulant use, unspecified, uncomplicated; Z86.73 Personal history of transient ischemic attack (TIA), and cerebral infarction without residual deficits; Z79.899 Other long term (current) drug therapy; Z79.82 Long term (current) use of aspirin; Z95.0 Presence of cardiac pacemaker
CPT/HCPCS: 36415; 71045; 80053; 83880; 85025; 93005; 99285

== ENCOUNTER 2025-02-13 16:51 | Emergency (ER) | payer MEDICAID ==
[~2025-02-13] VITALS: Ht 185.4 cm; Wt 108.2 kg
[~2025-02-13 16:51] MED LIST changes: -CARV3.1232 PO; +COR3.125T PO
--- NOTE | 2025-02-13 17:05 | ELECTROCARDIOGRAPH REPORT ---
[facility] Test Date: 2025-02-13 Test Time: 16:54:04 Pat Name: SAPNA DE LOS SANTOS Department: EMERGENCY ROOM [id number] Room: Gender: M Sourcing Intern: RUTH : 1985 Requested By: KATELYNN BENSON Order Number: [id number] Reading MD: Dr. Mario Alberto Thompson Measurements Intervals [place] Rate: 79 P: 55 DE: 170 QRS: 5 QRSD: 104 T: -4 QT: 388 QTc: 445 Interpretive Statements Sinus rhythm Borderline T abnormalities, inferior leads Electronically Signed On 02-13-2025 22:27:[address] Mario Alberto Thompson Please click the below link to view image of tracing.
--- NOTE | 2025-02-13 17:05 | Physician Documentation ---
History of Present Illness ~ Chief Complaint: Chest Pain Stated Complaint: "TIGHTNESS IN CHEST MAYBE STRESS RELATED" Time Seen by MD: 17:15 OK to notify your PCP?: Yes Primary Medical Doctor: [facility] Source: patient Mode of Arrival: POV Exam Limitations: no limitations HPI 39-year-old male presents with bilateral chest tightness since Friday. He believes it maybe due to high stress possible anxiety but he does have a cardiac history. 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 Medication Reconciliation Allergies: Coded Allergies: No Known Allergies (Unverified , 02/13/25) Scheduled Albuterol Sulfate (Proventil Hfa), 2 PUFFS INH Q6H Aspirin (Aspirin), 81 MG PO DAILY@0830 Atorvastatin Calcium (Atorvastatin Calcium), 40 MG PO HS Carvedilol (Carvedilol), 3.125 MG PO BID Clindamycin HCl (Clindamycin HCl), 1 CAP PO Q8H Erythromycin Base Opth. Ointment* (Erythromycin Opth. Ointment*), 1 APPLIC EACHEYE Q4HWA Hydroxyzine Hcl* (Atarax*), 1 TAB PO HS Lisinopril (Lisinopril), 2.5 MG PO HS Scheduled PRN Albuterol Sulfate (Proair Hfa), 2 PUFFS INH Q4HPRN PRN for SOB or wheezing, (Reported) Past Medical History Past Medical History: CVA/TIA/Stroke, Congestive Heart Failure, Asthma, Pneumonia, MRSA Abscess Past Surgical History: pacemaker Patient History: FH: cancer MOTHER Alcohol Use: None Drug Use: marijuana, methamphetamine Lives In: Home Review of Systems All Other Systems at this time: Reviewed and Negative Physical Exam Vital Signs: RN Vital Signs have been reviewed: Yes, Temperature: 97.9, Source: Temporal, Heart Rate: 72, Respiratory Rate: 16, BP: 147/92, Pulse Oximetry: 97, Weight: 108.250 Oxygen Flow Rate: 0 Pulse Oximetry Reflects: adequate oxygenation Physical Exam General: Alert, no distress. HEENT: No injection, moist mucous membranes. Neck: Full range of motion. Respiratory: No respiratory distress, equal chest rise and fall. Chest: No accessory muscle use. Cardiovascular: Regular rate and rhythm. Gastrointestinal: Nondistended. Extremities: Normal range of motion, no deformity. Neurologic: Oriented x4. Psychiatric: Normal mood and affect. Skin: Normal color, warm and dry. Progress Results/Orders Reviewed/noted all lab results: Yes Results/Orders Vital Signs 02/13/25 02/13/25 02/13/25 02/13/25 16:56 17:22 17:25 18:16 Temp 97.9 Pulse 72 73 65 Resp 16 18 18 16 B/P (MAP) 147/92 136/91 (106) 128/80 (96) Pulse Ox 97 98 98 O2 Flow Rate 0 0 0 02/13/25 02/13/25 18:22 19:42 Pulse 61 Resp 19 B/P (MAP) 122/87 (99) Pulse Ox 98 O2 Flow Rate 0 Laboratory Tests Test 02/13/25 17:00 02/13/25 18:54 02/13/25 20:00 White Blood Count 7.9 Red Blood Count 5.74 Hemoglobin 17.4 Hematocrit 50.3 Mean Corpuscular Volume 87.7 Mean Corpuscular Hemoglobin 30.3 Mean Corpuscular Hemoglobin Concent 34.5 Red Cell Distribution Width 13.0 Platelet Count 230 Mean Platelet Volume 8.4 Neutrophils (%) (Auto) 66.2 Lymphocytes (%) (Auto) 26.3 Monocytes (%) (Auto) 6.3 Eosinophils (%) (Auto) 0.7 Basophils (%) (Auto) 0.5 Neutrophils # (Auto) 5.2 Lymphocytes # (Auto) 2.1 Monocytes # (Auto) 0.5 Eosinophils # (Auto) 0.1 Basophils # (Auto) 0.0 CBC Comment Sodium Level 138 Potassium Level 3.5 Chloride Level 103 Carbon Dioxide Level 23.2 L Anion Gap 12 Blood Urea Nitrogen 15 Creatinine 1.00 Estimated GFR/1.73 m2 83 BUN/Creatinine Ratio 15.0 Glucose Level 125 H Calcium Level 9.0 Total Bilirubin 1.3 H Aspartate Amino Transf (AST/SGOT) 75 H Alanine Aminotransferase (ALT/SGPT) 45 Alkaline Phosphatase 77 Troponin I High Sensitivity 11 11 11 Pro-B-Type Natriuretic Peptide < 30 Total Protein 8.1 Albumin 4.4 Globulin 3.7 Albumin/Globulin Ratio 1.2 Chemistry Comments Troponin I High Sens Percent Delta 0 0 Troponin I Hi Sens Absolute Change 0 0 EKG/XRAY/CT/US/VASC/MRI EKG : Additional Comment Electrocardiogram: as interpreted by me; normal sinus rhythm, no axis deviation, no acute ischemia, normal intervals, no pre-excitation pattern. Chest X-Ray : Additional Comments Chest x-ray: as interpreted by me; no large effusion, no large infiltrate, normal mediastinum. Heart Score: Heart Score Response (Comments) Value History Slightly Suspicious 0 EKG Normal 0 Age <45 0 Risk Factors 1 or 2 risk factors 1 Troponin Normal limit 0 Total 1 Medical Decision Making Additional info obtained from: old records Findings 39-year-old male presents for bilateral chest pain has been since Friday night. He reports having increased stress and anxiety in his life at this point. He has a history of CHF in his currently taking medications and is being seen by a district customs director. He is currently not having any chest pain. He does take a baby aspirin every day already. His chest x-ray was unremarkable as well as his labs troponins were also unremarkable. His heart score is 1. We discussed that this is likely due to anxiety although he does need to follow up with his district customs director and his primary care provider and call them 1st thing tomorrow morning for when they would like to see him. Preferably needs to follow up with them within the next week. He should return back here for any new or worsening symptoms. I have prescribed him with some Atarax which he can take to help him sleep at nighttime and hopefully this can also help relax and ease his anxiety. If he has increased anxiety we discussed that he needs to follow up with a therapist to learn some anxiety reducing techniques. He agrees to this plan. Differential Dx:Considerations: Include: angina, aortic dissection, cholelithiasis, CHF, costochondritis, esophageal reflux/spasm, pericarditis, pancreatitis, pneumonia, pneumothorax, pulmonary embolus Additional Information AAA Departure Disposition: 01 HOME / SELF CARE / HOMELESS Impression: Primary Impression: Anxiety Additional Impression: Chest wall pain Condition: Stable Discharge Instructions: Managing Anxiety, Adult Additional Instructions: As discussed please follow-up with your district customs director as well as your primary care provider within the next week. Your chest pain workup today was unremarkable so I do believe that the cause of your chest pain is due to stress and anxiety. I have sent a prescription for Atarax to your pharmacy so hopefully you can take this at nighttime to help you sleep. Return back here for any new or worsening symptoms. Referrals: NO PRIMARY CARE PROVIDER (PCP) Prescriptions Hydroxyzine Hcl* (Atarax*) 10 Mg Tablet 1 TAB PO HS for anxiety for 30 Days, #30 TAB Prov: MARILYN FELIX 02/13/25 Education Educated: Patient Educated regarding: diagnosis, treatment, prognosis, need for follow up Additional Comment Medical Screen Exam This patient recieved a medical screening examination. After reviewing the individual's medical complaints with presenting symptoms and performing an appropriate physical examination, it was determined that no immediate life- threatening emergency medical condition is present. This individual is also not a women having contractions. Signature Scribe Signature: . Attestation: Scribed for Marilyn Felix by Marilyn Roman NP . 02/13/25 20:38 Parts of this note were created using [employer] voice recognition software program. While efforts were made to correct any mistakes made by this voice recognition software program, nonsensical phrases may remain in this note. In addition, there may be errors and syntax, grammar, content and spelling. MARILYN FELIX Feb 13, 2025 17:05
[2025-02-13 17:30] LABS: CREATININE 1.00 MG/DL (0.60-1.10); MEAN PLATELET VOLUME 8.4 FL (7.4-10.4); RED CELL DISTRIBUTION WIDTH 13.0 % (11.5-14.5); TOTAL CARBON DIOXIDE 23.2 MMOL/L (24-32); eCRCL 111 ML/MIN; eGFR 83 ML/MIN
[2025-02-13 17:37] LABS: PRO BRAIN NATRIURETIC PEPTIDE < 30 PG/ML (0-125)
--- NOTE | 2025-02-13 17:50 | RADIOLOGY REPORT ---
CHEST RADIOGRAPH Indication: CP Technique: Single frontal view of the chest was obtained Comparison: DI CHEST,SINGLE VIEW on DOS: 10/14/24, DI CHEST,SINGLE VIEW on DOS: 10/11/24, DI CHEST,SING LE VIEW on DOS: 02/25/24, DI CHEST,SINGLE VIEW on DOS: 12/31/23, DI CHEST,SINGLE VIEW on DOS: 10/12/23 FINDINGS: Lines and Tubes: None Lungs: No focal consolidation. Pleura: No effusion. No pneumothorax. Cardiomediastinal contours: Unremarkable Bones: No acute osseous abnormality. IMPRESSION: No acute cardiopulmonary disease.
[2025-02-13] MEDS ORDERED: HYDR-3717 PO (20:36)
[2025-02-13 20:43] VITALS: BP 147/79; PULSE 68; RESP 19; TEMP 97.9; O2SAT 100
== END 2025-02-13 20:45 | disposition home or self-care (01) ==
LOC: ER 16:52
DX: R07.89 Other chest pain (principal); F41.9 Anxiety disorder, unspecified; I50.9 Heart failure, unspecified; J45.909 Unspecified asthma, uncomplicated; Z86.73 Personal history of transient ischemic attack (TIA), and cerebral infarction without residual deficits; Z79.899 Other long term (current) drug therapy
CPT/HCPCS: 36415; 71045; 80053; 83880; 84484; 85025; 93005; 99285

== ENCOUNTER 2025-02-17 14:36 | Emergency (ER) | payer MEDICAID ==
[~2025-02-17] VITALS: Ht 185.4 cm; Wt 107.3 kg
[~2025-02-17 14:36] MED LIST changes: +HYDR-3717 PO
--- NOTE | 2025-02-17 14:58 | ELECTROCARDIOGRAPH REPORT ---
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 Mario Alberto Thompson Measurements Intervals [place] Rate: 71 P: 50 [place]: 174 QRS: -9 QRSD: 104 T: 25 QT: 387 QTc: 421 Interpretive Statements Sinus rhythm Baseline wander in lead(s) I,II,aVR Electronically Signed On 02-18-2025 19:28:[address] Mario Alberto Thompson Please click the below link to view image of tracing.
[2025-02-17 15:16] VITALS: TEMP 98
[2025-02-17 15:16] LABS: MEAN PLATELET VOLUME 8.3 FL (7.4-10.4); RED CELL DISTRIBUTION WIDTH 12.7 % (11.5-14.5)
[2025-02-17 15:45] LABS: CREATININE 1.11 MG/DL (0.60-1.10); PRO BRAIN NATRIURETIC PEPTIDE < 30 PG/ML (0-125); TOTAL CARBON DIOXIDE 29.2 MMOL/L (24-32); eCRCL 100 ML/MIN; eGFR 73 ML/MIN
--- NOTE | 2025-02-17 16:06 | Physician Documentation ---
History of Present Illness ~ Chief Complaint: Chest Pain Stated Complaint: CHEST PAIN Time Seen by MD: 15:06 Primary Medical Doctor: [facility] Source: patient Mode of Arrival: POV, Ambulatory Exam Limitations: no limitations HPI Patient who has been clean off of meth for 5 years but used meth for 20 years in with chest pain over the last couple of days intermittently. He was seen here a few days ago for the same thing. He reports he was had a lot of anxiety in his life lately. He is to have bad CHF and had a defibrillator but ultimately that was removed after recovery and healing. He states all of his tests were normal the other day but he was just concerned and wanted to get rechecked. He gets an echocardiogram every 6 months and his last 1 was 3 months ago. Reports his EF is 55-60%. Medication Reconciliation Allergies: Coded Allergies: No Known Allergies (Unverified , 02/17/25) Scheduled Albuterol Sulfate (Proventil Hfa), 2 PUFFS INH Q6H Aspirin (Aspirin), 81 MG PO DAILY@0830 Atorvastatin Calcium (Atorvastatin Calcium), 40 MG PO HS Carvedilol (Carvedilol), 3.125 MG PO BID Clindamycin HCl (Clindamycin HCl), 1 CAP PO Q8H Erythromycin Base Opth. Ointment* (Erythromycin Opth. Ointment*), 1 APPLIC EACHEYE Q4HWA Hydroxyzine Hcl* (Atarax*), 1 TAB PO HS Lisinopril (Lisinopril), 2.5 MG PO HS Scheduled PRN Albuterol Sulfate (Proair Hfa), 2 PUFFS INH Q4HPRN PRN for SOB or wheezing, (Reported) Past Medical History Past Medical History: CVA/TIA/Stroke, Congestive Heart Failure, Asthma, Pneumonia, MRSA Abscess Past Surgical History: pacemaker Patient History: FH: cancer MOTHER Alcohol Use: None Drug Use: marijuana, methamphetamine Lives In: Home Review of Systems All Other Systems at this time: Reviewed and Negative Physical Exam Vital Signs: Temperature: 98.0, Source: Oral, Heart Rate: 69, Respiratory Rate: 15, BP: 135/94, Pulse Oximetry: 97, Weight: 107.300 Oxygen Flow Rate: 0 General Appearance: alert, WD/WN Neck: normal inspection, full range of motion Respiratory: lungs clear, normal breath sounds, no respiratory distress, decreased breath sounds Chest: no accessory muscle use Cardiovascular: regular rate, rhythm, no edema, no JVD, no murmur Extremities: normal inspection Neurologic: oriented x4, memory intact Psychiatric: normal mood/affect Skin: normal color, warm/dry Progress Progress Note Patient in with mild chest pain. Workup unremarkable with negative EKG, chest x-ray troponin, CBC and chemistry panel. Also had negative tests happened, days ago. Last echo 3 months ago was normal. Discussed with the patient this is reassuring. Discharged home in good condition. May be secondary to anxiety. Follow up with PCP. Return here if new or worsening symptoms. Results/Orders Results/Orders Orders - JANA SOLER MD Chest,Single View (02/17/25 16:00) Monitor (02/17/25 14:56) Saline Lock (02/17/25 14:56) Oxygen (02/17/25 14:56) Hs Troponin I W Calculations (02/17/25 16:56) Hs Troponin I W Calculations (02/17/25 17:56) Aspirin 81mg Chew Tablet (Aspirin 81mg C (02/18/25 08:30) Completed Orders - JANA SOLER MD Chest,Single View (02/17/25 16:00) Cbc/Diff (02/17/25 14:56) BMP (02/17/25 14:56) PBNP (02/17/25 14:56) Electrocardiogram (02/17/25 14:56) Hs Troponin I W Calculations (02/17/25 14:56) Vital Signs 02/17/25 02/17/25 02/17/25 14:50 15:01 15:16 Temp 98.0 98.0 Pulse 70 69 Resp 16 15 B/P (MAP) 130/70 135/94 (108) Pulse Ox 98 97 O2 Flow Rate 0 0 Laboratory Tests Test 02/17/25 14:43 White Blood Count 5.5 Red Blood Count 5.65 Hemoglobin 17.3 Hematocrit 50.1 Mean Corpuscular Volume 88.6 Mean Corpuscular Hemoglobin 30.6 Mean Corpuscular Hemoglobin Concent 34.5 Red Cell Distribution Width 12.7 Platelet Count 248 Mean Platelet Volume 8.3 Neutrophils (%) (Auto) 62.1 Lymphocytes (%) (Auto) 29.6 Monocytes (%) (Auto) 6.4 Eosinophils (%) (Auto) 1.1 Basophils (%) (Auto) 0.8 Neutrophils # (Auto) 3.4 Lymphocytes # (Auto) 1.6 Monocytes # (Auto) 0.4 Eosinophils # (Auto) 0.1 Basophils # (Auto) 0.0 CBC Comment Sodium Level 138 Potassium Level 3.9 Chloride Level 104 Carbon Dioxide Level 29.2 Anion Gap 5 L Blood Urea Nitrogen 13 Creatinine 1.11 H Estimated GFR/1.73 m2 73 BUN/Creatinine Ratio 11.7 Glucose Level 119 H Calcium Level 9.0 Troponin I High Sensitivity 10 Pro-B-Type Natriuretic Peptide < 30 Albumin 4.5 Chemistry Comments EKG/XRAY/CT/US/VASC/MRI EKG : EKG Rate: 71 EKG: NSR, no ST T wave changes Departure Impression: Primary Impression: Chest pain Qualified Codes: R07.9 - Chest pain, unspecified Condition: Stable Discharge Instructions: Nonspecific Chest Pain, Adult Additional Instructions: Follow up with your doctor in the next 7-10 days. Return here if new or worsening symptoms. Referrals: NO PRIMARY CARE PROVIDER (PCP) Education Educated: Patient Educated regarding: diagnosis, treatment, need for follow up Signature Scribe Signature: No scribe used Attestation: No scribe used JANA SOLER MD Feb 17, 2025 16:05
[2025-02-17 16:20] VITALS: BP 122/85; PULSE 67; RESP 18; O2SAT 97
--- NOTE | 2025-02-17 16:38 | RADIOLOGY REPORT ---
EXAM: DI CHEST,SINGLE VIEW TECHNIQUE: Single frontal chest radiograph CLINICAL HISTORY: CP COMPARISON: DI CHEST,SINGLE VIEW on DOS: 02/13/25, DI CHEST,SINGLE VIEW on DOS: 10/14/24, DI CHEST,SING LE VIEW on DOS: 10/11/24 Findings/Impression: Frontal chest radiograph demonstrates no acute osseous or superficial soft tissue abnormalities. The trachea is midline. The cardiac silhouette and mediastinum are within normal limits. No pneumothorax, pleural effusions, or consolidations.
== END 2025-02-17 16:23 | disposition home or self-care (01) ==
LOC: ER 14:37
DX: R07.89 Other chest pain (principal); J45.909 Unspecified asthma, uncomplicated; I50.9 Heart failure, unspecified; F12.90 Cannabis use, unspecified, uncomplicated; F15.90 Other stimulant use, unspecified, uncomplicated; Z95.0 Presence of cardiac pacemaker; Z86.73 Personal history of transient ischemic attack (TIA), and cerebral infarction without residual deficits; Z79.82 Long term (current) use of aspirin; Z79.899 Other long term (current) drug therapy
CPT/HCPCS: 36415; 71045; 80048; 83880; 84484; 85025; 93005; 99285

== ENCOUNTER 2025-03-02 00:22 | Emergency (ER) | payer MEDICAID ==
[~2025-03-02] VITALS: Ht 185.4 cm; Wt 107.7 kg
[2025-03-02 00:27] VITALS: TEMP 97.6
[2025-03-02 00:42] LABS: MEAN PLATELET VOLUME 8.1 FL (7.4-10.4); RED CELL DISTRIBUTION WIDTH 12.9 % (11.5-14.5)
[2025-03-02 00:45] LABS: LEUKOCYTE ESTERASE ,URINE NEGATIVE (Neg); NITRITES, URINE NEGATIVE (Neg); OCCULT BLOOD,URINE NEGATIVE (Neg)
[2025-03-02 00:46] LABS: UA COLLECTION TYPE CLN CATCH MIDSTREAM
--- NOTE | 2025-03-02 00:51 | Physician Documentation ---
History of Present Illness ~ Chief Complaint: Abdominal Pain Stated Complaint: ABD PAIN Time Seen by MD: 00:35 Primary Medical Doctor: [facility] HPI Patient presents to the emergency room for evaluation of one-week history of left lower quadrant abdominal pain. He states he started noticing when he was shoveling some dirt. Bowel movements reported to be normal. No fevers. He is concerned he may have a hernia. Patient declining pain medication. Medication Reconciliation Allergies: Coded Allergies: No Known Allergies (Unverified , 02/17/25) Scheduled Albuterol Sulfate (Proventil Hfa), 2 PUFFS INH Q6H Aspirin (Aspirin), 81 MG PO DAILY@0830 Atorvastatin Calcium (Atorvastatin Calcium), 40 MG PO HS Carvedilol (Carvedilol), 3.125 MG PO BID Clindamycin HCl (Clindamycin HCl), 1 CAP PO Q8H Erythromycin Base Opth. Ointment* (Erythromycin Opth. Ointment*), 1 APPLIC EACHEYE Q4HWA Hydroxyzine Hcl* (Atarax*), 1 TAB PO HS Lisinopril (Lisinopril), 2.5 MG PO HS Scheduled PRN Albuterol Sulfate (Proair Hfa), 2 PUFFS INH Q4HPRN PRN for SOB or wheezing, (Reported) Past Medical History Past Medical History: CVA/TIA/Stroke, Congestive Heart Failure, Asthma, Pneumonia, MRSA Abscess Past Surgical History: pacemaker Patient History: FH: cancer MOTHER Alcohol Use: None Drug Use: marijuana, methamphetamine Lives In: Home Review of Systems ROS All review of systems negative except as per HPI Physical Exam Vital Signs: Temperature: 97.6, Source: Temporal, Heart Rate: 84, Respiratory Rate: 18, BP: 157/95, Pulse Oximetry: 98, Weight: 107.650 Oxygen Flow Rate: 0 Physical Exam General: Patient is awake, alert, oriented x4 in no acute distress Head: Normocephalic and atraumatic. Eyes: Conjunctival normal. EOMI. PERRL. ENT: Mucous membranes moist. Neck: Supple, trachea is midline. Chest: Clear to auscultation bilaterally without rales, rhonchi, or wheezes. There is no accessory muscle use or retractions. Cardiac: RRR without murmurs, gallops, or rubs. Abd: Soft, nondistended, mild left lower quadrant abdominal tenderness to palpation without peritonitis. No hernia appreciated Progress Results/Orders Results/Orders Orders - PATRIC WIN MD Procalcitonin (03/02/25 00:35) Completed Orders - PATRIC WIN MD Urinalysis, Cult If Indicated (03/02/25 00:25) Cbc/Diff (03/02/25 00:25) BMP (03/02/25 00:25) Lipase (03/02/25 00:25) CMP (03/02/25 00:25) LA (03/02/25 00:35) Vital Signs 03/02/25 03/02/25 00:27 00:34 Temp 97.6 Pulse 84 Resp 18 B/P (MAP) 157/95 Pulse Ox 98 O2 Flow Rate 0 Laboratory Tests Test 03/02/25 00:30 03/02/25 00:35 03/02/25 00:43 Urine Specimen Description Cln catch midstream Urine Color Yellow Urine Clarity Clear Urine pH 7.0 Urine Specific [place] 1.010 Urine Protein Negative Urine Glucose (UA) Negative Urine Ketones Negative Urine Occult Blood Negative Urine Nitrite Negative Urine Bilirubin Negative Urine Urobilinogen 1.0 Urine Leukocyte Esterase Negative Urine Culture Indicated Not ind Volume Urine Centrifuged 10 ml Urine Comment White Blood Count 7.7 Red Blood Count 5.39 Hemoglobin 16.7 Hematocrit 48.0 Mean Corpuscular Volume 89.1 Mean Corpuscular Hemoglobin 31.0 Mean Corpuscular Hemoglobin Concent 34.8 Red Cell Distribution Width 12.9 Platelet Count 245 Mean Platelet Volume 8.1 Neutrophils (%) (Auto) 42.4 Lymphocytes (%) (Auto) 46.7 Monocytes (%) (Auto) 8.4 Eosinophils (%) (Auto) 1.9 Basophils (%) (Auto) 0.6 Neutrophils # (Auto) 3.3 Lymphocytes # (Auto) 3.6 Monocytes # (Auto) 0.6 Eosinophils # (Auto) 0.1 Basophils # (Auto) 0.0 CBC Comment Sodium Level 142 Potassium Level 4.0 Chloride Level 105 Carbon Dioxide Level 27.3 Anion Gap 10 Blood Urea Nitrogen 12 Creatinine 0.96 Estimated GFR/1.73 m2 87 BUN/Creatinine Ratio 12.5 Glucose Level 100 Calcium Level 9.1 Total Bilirubin 0.4 Aspartate Amino Transf (AST/SGOT) 19 Alanine Aminotransferase (ALT/SGPT) 33 Alkaline Phosphatase 81 Total Protein 7.3 Albumin 4.1 Globulin 3.2 Albumin/Globulin Ratio 1.3 Lipase 72 Chemistry Comments Lactic Acid Level 1.0 Medical Decision Making Findings Patient presented to the emergency room with abdominal pain in the left lower quadrant as per HPI. Differentials include but are not limited to muscle strain, hernia, constipation, diverticulitis, intra-abdominal infection therefore emergent labs ordered which were reassuring. No hernia on physical exam. I suspect muscle strain. He had not feel patient requires CT scan as I believe the risk of radiation exposure outweighs any benefit at this juncture. Departure Disposition: HOME / SELF CARE / HOMELESS Impression: Primary Impression: Abdominal pain Condition: Stable Discharge Instructions: Abdominal Pain (Nonspecific) Referrals: NO PRIMARY CARE PROVIDER (PCP) Signature Scribe Signature: No scribe Attestation: The note accurately reflects work and decisions made by me.Patric Win MD 03/02/25 01:19 PATRIC WIN MD Mar 02, 2025 00:50
[2025-03-02 01:00] LABS: CREATININE 0.96 MG/DL (0.60-1.10); TOTAL CARBON DIOXIDE 27.3 MMOL/L (24-32); eCRCL 116 ML/MIN; eGFR 87 ML/MIN
[2025-03-02 01:20] VITALS: BP 154/97; PULSE 72; RESP 18; O2SAT 98
== END 2025-03-02 01:26 | disposition home or self-care (01) ==
LOC: ER 00:22
DX: R10.32 Left lower quadrant pain (principal); I50.9 Heart failure, unspecified; J45.909 Unspecified asthma, uncomplicated; F12.90 Cannabis use, unspecified, uncomplicated; F15.90 Other stimulant use, unspecified, uncomplicated; Z86.73 Personal history of transient ischemic attack (TIA), and cerebral infarction without residual deficits; Z95.0 Presence of cardiac pacemaker; Z79.82 Long term (current) use of aspirin
CPT/HCPCS: 36415; 80053; 81003; 83605; 83690; 84145; 85025; 87491; 99283

== ENCOUNTER 2025-05-07 14:29 | Emergency (ER) | payer MEDICAID ==
[~2025-05-07] VITALS: Ht 185.4 cm; Wt 103.2 kg
[~2025-05-07 14:29] MED LIST changes: -HYDR-3717 PO
--- NOTE | 2025-05-07 15:05 | Physician Documentation ---
History of Present Illness ~ Chief Complaint: Shortness of Breath Stated Complaint: FAST HEART RATE Time Seen by MD: 14:54 Primary Medical Doctor: [facility] Source: patient Mode of Arrival: POV Exam Limitations: no limitations HPI 39-year-old male with complaints of exertional shortness of breath with history of cardiomyopathy does have a motion designer with echo and cardiac workup completed approximately 1 year ago. Patient states his ejection fraction 55- 60%. Patient states that he does have intermittent chest pain but also endorses anxiety. Patient states this exertional shortness of breath started approximately 1 week ago. 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 Medication Reconciliation Allergies: Coded Allergies: No Known Allergies (Unverified , 05/07/25) Scheduled Albuterol Sulfate (Proventil Hfa), 2 PUFFS INH Q6H Aspirin (Aspirin), 81 MG PO DAILY@0830 Atorvastatin Calcium (Atorvastatin Calcium), 40 MG PO HS Carvedilol (Carvedilol), 3.125 MG PO BID Clindamycin HCl (Clindamycin HCl), 1 CAP PO Q8H Erythromycin Base Opth. Ointment* (Erythromycin Opth. Ointment*), 1 APPLIC EACHEYE Q4HWA Lisinopril (Lisinopril), 2.5 MG PO HS Scheduled PRN Albuterol Sulfate (Proair Hfa), 2 PUFFS INH Q4HPRN PRN for SOB or wheezing, (Reported) Past Medical History Past Medical History: CVA/TIA/Stroke, *CARDIOVASCULAR*, Congestive Heart [place], Asthma, Pneumonia, MRSA Abscess Past Surgical History: pacemaker Patient History: FH: cancer MOTHER Alcohol Use: None Drug Use: marijuana, methamphetamine Lives In: Home Occupation: employed Review of Systems All Other Systems at this time: Reviewed and Negative Respiratory: Reports: see HPI Cardiovascular: Reports: see HPI Physical Exam Vital Signs: Temperature: 97.4, Source: Temporal, Heart Rate: 93, Respiratory Rate: 20, BP: 127/95, Pulse Oximetry: 98, Weight: 103.200 Oxygen Flow Rate: 0 Physical Exam General: Alert, no apparent distress. HEENT: PERRL, EOMI, no injection, moist mucous membranes. Neck: Full range of motion. Respiratory: Lungs clear, no respiratory distress. Chest: No accessory muscle use. Cardiovascular: Regular rate and rhythm, no murmurs. Extremities: Normal range of motion, no deformity. Neurologic: Oriented x4. Psychiatric: Normal mood and affect. Skin: Normal color, warm and dry. No edema, no ecchymosis. Progress Results/Orders Results/Orders Orders - BARBARA MATA PATCH FINISHER Chest,Single View (05/07/25 14:58) Monitor (05/07/25 14:58) Saline Lock (05/07/25 14:58) Oxygen (05/07/25 14:58) Hs Troponin I W Calculations (05/07/25 16:58) Hs Troponin I W Calculations (05/07/25 17:58) Completed Orders - BARBARA MATA PATCH FINISHER Chest,Single View (05/07/25 14:58) Cbc/Diff (05/07/25 14:58) BMP (05/07/25 14:58) PBNP (05/07/25 14:58) Electrocardiogram (05/07/25 14:58) Hs Troponin I W Calculations (05/07/25 14:58) Urinalysis, Cult If Indicated (05/07/25 16:41) Vital Signs 05/07/25 05/07/25 05/07/25 05/07/25 14:48 15:48 16:32 16:48 Temp 97.4 Pulse 93 99 74 Resp 20 18 12 18 B/P (MAP) 127/95 159/110 (126) 134/91 (105) Pulse Ox 98 96 95 O2 Flow Rate 0 0 0 Laboratory Tests Test 05/07/25 15:21 05/07/25 16:24 05/07/25 17:02 White Blood Count 8.3 Red Blood Count 5.85 Hemoglobin 17.9 Hematocrit 51.4 Mean Corpuscular Volume 87.9 Mean Corpuscular Hemoglobin 30.6 Mean Corpuscular Hemoglobin Concent 34.9 Red Cell Distribution Width 12.8 Platelet Count 266 Mean Platelet Volume 8.0 Neutrophils (%) (Auto) 66.4 Lymphocytes (%) (Auto) 24.1 Monocytes (%) (Auto) 8.1 Eosinophils (%) (Auto) 0.7 Basophils (%) (Auto) 0.7 Neutrophils # (Auto) 5.5 Lymphocytes # (Auto) 2.0 Monocytes # (Auto) 0.7 Eosinophils # (Auto) 0.1 Basophils # (Auto) 0.1 CBC Comment Sodium Level 140 Potassium Level 4.1 Chloride Level 105 Carbon Dioxide Level 26.4 Anion Gap 9 Blood Urea Nitrogen 15 Creatinine 1.17 H Estimated GFR/1.73 m2 69 BUN/Creatinine Ratio 12.8 Glucose Level 104 Calcium Level 9.3 Troponin I High Sensitivity 8 Pro-B-Type Natriuretic Peptide < 30 Albumin 4.4 Chemistry Comments Urine Specimen Description Cln catch midstream Urine Color Yellow Urine Clarity Clear Urine pH 5.5 Urine Specific Finley >=1.030 Urine Protein Negative Urine Glucose (UA) Negative Urine Ketones >=80 Urine Occult Blood Negative Urine Nitrite Negative Urine Bilirubin Negative Urine Urobilinogen 1.0 Urine Leukocyte Esterase Negative Urine Culture Indicated Not ind Volume Urine Centrifuged 10 ml Urine Comment EKG/XRAY/CT/US/VASC/MRI EKG : Additional Comment EKG: Sinus rhythm at 93 beats per minute normal axis no acute ST-T abnormality Chest X-Ray : Additional Comments CHEST RADIOGRAPH Indication: CP Technique: DI CHEST,SINGLE VIEW Comparison: None FINDINGS: The cardiac silhouette is unremarkable. The lungs demonstrate no pulmonary airspace consolidation. The pulmonary vasculature is unremarkable. There is no pleural effusion. There is no pneumothorax. IMPRESSION: No pulmonary airspace consolidation. Heart Score: Heart Score Response (Comments) Value History Slightly Suspicious 0 EKG Normal 0 Age <45 0 Risk Factors 1 or 2 risk factors 1 Troponin Normal limit 0 Total 1 Medical Decision Making Additional information obtaine: N/A Findings Patient has history of cardiomyopathy does see his motion designer regularly. Patient's next appointment is in June. Patient did have a recent change to his medications switching from carvedilol to metoprolol he is closely associated his symptoms with the change in medication. Patient is labs, vital signs EKG an d x-ray are reassuring and unremarkable for any significant findings including emergent cardiac differentials. Reassured patient. Patient does have history of anxiety as well. Patient will follow up with his primary care and motion designer heart score 1 Heart Score: 1 Differential Dx:Considerations: Include: anxiety, asthma, CHF, COPD, h ypertension, accelerated, myocardial infarction, panic attack, pneumonia Departure Time of Disposition: 17:16 Disposition: 01 HOME / SELF CARE / HOMELESS Impression: Primary Impression: Palpitations Additional Impression: Difficulty breathing Condition: Stable Discharge Instructions: Palpitations, [id number] Additional Instructions: Maintain appointments with motion designer and see primary care within 1-2 weeks. Monitor for any new or worsening symptoms. Change back your medication for metoprolol to carvedilol to see if symptoms improve. Monitor and feel free to return to the ER for any new or worsening symptoms. Referrals: NO PRIMARY CARE PROVIDER (PCP) Education Educated: Patient Educated regarding: diagnosis, treatment, need for follow up Signature Scribe Signature: No scribe Attestation: The note accurately reflects work and decisions made by me.Barbara MORFIN 05/07/25 15:05 BARBARA MATA NP May 07, 2025 15:05
--- NOTE | 2025-05-07 15:19 | ELECTROCARDIOGRAPH REPORT ---
[facility] Test Date: 2025-05-07 Test Time: 15:16:55 Pat Name: SAPNA DE LOS SANTOS Department: [facility]- Patient ID: [facility]-[id number] Room: Gender: M Mobile Therapist: : 1985 Requested By: LAURA MATA Order Number: [id number] Reading MD: Measurements Intervals [place] Rate: 93 P: 59 IN: 170 QRS: 2 QRSD: 102 T: 0 QT: 355 QTc: 442 Interpretive Statements Sinus rhythm Baseline wander in lead(s) I,III,aVL Please click the below link to view image of tracing.
--- NOTE | 2025-05-07 15:36 | RADIOLOGY REPORT ---
CHEST RADIOGRAPH Indication: CP Technique: DI CHEST,SINGLE VIEW Comparison: None FINDINGS: The cardiac silhouette is unremarkable. The lungs demonstrate no pulmonary airspace consolidation. The pulmonary vasculature is unremarkable. There is no pleural effusion. There is no pneumothorax. IMPRESSION: No pulmonary airspace consolidation.
[2025-05-07 15:38] LABS: MEAN PLATELET VOLUME 8.0 FL (7.4-10.4); RED CELL DISTRIBUTION WIDTH 12.8 % (11.5-14.5)
[2025-05-07 16:01] LABS: CREATININE 1.17 MG/DL (0.60-1.10); PRO BRAIN NATRIURETIC PEPTIDE < 30 PG/ML (0-125); TOTAL CARBON DIOXIDE 26.4 MMOL/L (24-32); eCRCL 95 ML/MIN; eGFR 69 ML/MIN
[2025-05-07 16:51] LABS: LEUKOCYTE ESTERASE ,URINE NEGATIVE (Neg); NITRITES, URINE NEGATIVE (Neg); OCCULT BLOOD,URINE NEGATIVE (Neg); UA COLLECTION TYPE CLN CATCH MIDSTREAM
[2025-05-07 17:23] VITALS: BP 133/82; PULSE 79; RESP 16; TEMP 97.9; O2SAT 98
== END 2025-05-07 17:25 | disposition home or self-care (01) ==
LOC: ER 14:30
DX: R00.2 Palpitations (principal); R06.02 Shortness of breath; F41.9 Anxiety disorder, unspecified; I50.9 Heart failure, unspecified; J45.909 Unspecified asthma, uncomplicated; F12.90 Cannabis use, unspecified, uncomplicated; F15.90 Other stimulant use, unspecified, uncomplicated; Z86.73 Personal history of transient ischemic attack (TIA), and cerebral infarction without residual deficits; Z79.82 Long term (current) use of aspirin; Z95.0 Presence of cardiac pacemaker
CPT/HCPCS: 36415; 71045; 80048; 81003; 83880; 84484; 85025; 93005; 99285

== ENCOUNTER 2025-06-24 22:49 | Emergency (ER) | payer MEDICAID | END 2025-06-24 23:31 | disposition left against medical advice (07) | LOC: ER 22:49 | DX: F10.90 Alcohol use, unspecified, uncomplicated (principal); Y90.9 Presence of alcohol in blood, level not specified; Z53.21 Procedure and treatment not carried out due to patient leaving prior to being seen by health care provider ==